=== PATIENT | female | born 1950 | race Caucasian/White ===

== ENCOUNTER 2022-07-01 11:53 | Inpatient (IN) ==
[2022-07-01] MEDS ORDERED: SODIUM CHLORIDE 0.9% 500 ML IV STA (12:12)
[2022-07-01] MEDS ORDERED: SODIUM CHLORIDE 0.9% 1000ML 500 ML IV ONE (13:24)
[2022-07-01] MEDS ORDERED: SODIUM CHLORIDE 0.9% 1000ML 1,000 ML IV SCH (13:30)
[2022-07-01 13:35] LABS: Basophils # (auto) 0.03 K/uL (0-0.2); Basophils % (auto) 0.4 %; Hematocrit (blood only) 43.9 % (37.0-47.0); Hemoglobin 14.8 g/dl (12.0-16.0); Immature Granulocytes # (auto) 0.02 K/uL (0.01-0.20); Immature Granulocytes % (auto) 0.3 %; Lymphocytes % (auto) 20.9 %; Mean Corpuscular Hemoglobin 29.9 pg (25.0-34.0); Mean Corpuscular Hgb Conc 33.7 g/dL (32.0-36.0); Mean Corpuscular Volume 88.7 fL (80.0-100.0); Mean Platelet Volume 10.2 fL (9.4-12.4); Monocytes # (auto) 0.95 K/uL (0.11-0.59); Monocytes % (auto) 12.4 %; Neutrophils # (auto) 5.07 K/uL (1.40-6.50); Platelet Count 234 K/uL (130-400); RDW Coefficient of Variation 12.8 % (11.5-14.5); RDW Standard Deviation 41.5 fL (36.4-46.3); Red Blood Count 4.95 M/uL (4.20-5.40); White Blood Count 7.67 K/ul (4.8-10.8)
--- NOTE | 2022-07-01 13:50 | Emergency Department Note ---
Impression & Plan Acute confusion ED Provider Note INFORMANT: Patient and ED PROVIDER(S): Yan Rice MD CHIEF COMPLAINT: Confusion PLAN: Disposition: Admitted Condition: Good Outpatient prescription management: none Referral: None MEDICAL DECISION MAKING: Patient presented complaining of confusion. She also noted urinary symptoms. She work-up obtained. Her head CT was unremarkable. Her CBC and chemistry panel was unremarkable. Total CK was within normal limits. Head CT imaging was unremarkable. The patient had dark urine complaints and urinalysis did reveal some concerns for infection. She had a CT scan of the abdomen pelvis performed which revealed no evidence of nephro or ureteral lithiasis. The patient did have some mild bladder wall thickening. She was treated with IV Rocephin and hydrated. Given the findings further management in the hospital was felt to be appropriate. Consultation was made with the [facility] hospitalist service. The case was discussed and diagnostics were reviewed. Patient was evaluated in the ER and admitted for further management After review of the information above and other included data, I feel the patient requires further treatment in the hospital. Triage Nursing notes reviewed and agree them. Vital Signs: reviewed and remarkable for no significant abnormalities Prior /Outside records reviewed: none Differential diagnosis: Infection, hypoglycemia, electrolyte abnormalities, overdose, toxicologic, cardiac sources, intracerebral event, neurologic, trauma, as well as other patho logies. Diagnostics, as interpreted by me: ECG: Twelve-lead ECG reveals sinus rhythm with first-degree AV block at [address] No ST elevation or depression. Cardiac Monitoring: Cardiac monitoring ordered by me: The patient was placed on continuous cardiac monitoring and observed. It revealed a normal sinus rhythm at 82 beats per minute without ectopy or evidence of dysrhythmia. Medical decision rules: none Imaging studies: CT scans as noted above. I refer you to the EMR for further details. HPI: The patient is a 71year old female who presents to the Emergency Room with complaints of confusion. This started about 5 days ago per the and is fluctuating. She was more confused this morning. She has been treated by Dr. Gardiner of [facility] gastroenterology. They contacted the office and patient was referred to the ER for work-up. She is being treated over the last several decades for colitis. The patient also notes the following associated symptoms, decreased urinary output, dark urine output weakness, occasional nausea vomiting. The patient has found no relieving factors. Patient reported 8 of 10 pain at triage but denies any pain at this time. Pt denies LOC, headache, fevers, chills, diaphoresis, visual changes, neck pain, chest pain, breathing difficulties, current abdominal pain, back pain, melena, hematochezia, numbness, lymphadenopathy, rash, or other complaints. PAST MEDICAL HISTORY: See Below, breast cancer, diabetes insipidus PAST SURGICAL HISTORY: See Below, SOCIAL HISTORY: See Below, HOME MEDICATIONS: See Below ALLERGIES: See Below VITALS: See Below PHYSICAL EXAMINATION: .GENERAL: Awake, alert, pxk-[id number]-snbjiypul, in no distress HENT: Normocephalic, atraumatic. Oropharynx with mildly dry mucous membranes. EYES: Normal conjunctiva. Sclera non-icteric. NECK: Inspection normal. Non-tender. Supple. No nuchal rigidity. FROM. No masses. RESPIRATORY: Clear to auscultation. No wheezes. No rales. Normal respiratory effort. CARDIAC: Normal rate. Normal rhythm. No murmurs. No rubs. Extremities warm and well perfused. Pulses equal. No JVD. GI: Soft, non-distended. Scant left lower quadrant tenderness to palpation. No rebound or guarding. No masses. RECTAL: Deferred. MUSCULOSKELETAL: Atraumatic. Chest examination reveals no tenderness. The back is symmetrical on inspection without obvious abnormality. There is no CVA tenderness to palpation. No joint edema. LOWER EXTREMITIES: Calves are equal size bilaterally and non-tender. No edema. No discoloration. NEURO: Normal sensorium. No sensory or motor deficits noted. SKIN: No rash or jaundice noted. 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 PT HAD BILATERAL MASTECTOMY 01/20/12 WITH LYMPH NODE INVOLVEMENT OF RIGHT AXILLA. LEFT AXILLA NEGATIVE FOR LYMPH NODE INVO LVEMENT TREATED WITH CHEMO AND RADIATION THERAPY History of CVA (cerebrovascular accident) 2003 Hypertension Lymphocytic hypophysitis Osteoarthritis Ulcerative colitis Surgical History H/O bilateral mastectomy History of bowel resection FOLLOWING A COLONOSCOPY History of lymph node dissection of both axillae Family History Other COPD (chronic obstructive pulmonary disease) Cancer Social History Smoking Status: Never smoker Do You Dip or Chew Tobacco: No; Hx Alcohol Use: No Hx Substance Use: No Preferred Language: [place]ese Communication Ability: Effective Fur Cleaner Required: No Beliefs That Will Affect Care: None Current Living Situation: Spouse and Family Other Information That Helps Us Care for You: No Feels Safe at Home: Yes Safety Concerns: Feels Safe At This Time Assistive Devices: None Allergies Allergies Allergy/AdvReac Type Severity Reaction Status Date / Time hydrocodone Allergy Severe RASH Verified 07/01/22 16:02 Penicillins Allergy Severe CAN'T Verified 07/01/22 16:02 REMEMBER ciprofloxacin AdvReac Intermediate nausea/vomi Verified 07/01/22 16:02 ting meloxicam [From Mobic] AdvReac Intermediate DIARRHEA/NA Verified 07/01/22 16:02 USEA/VOMITI NG Sulfa (Sulfonamide AdvReac Intermediate CAUSED Verified 07/01/22 16:02 Antibiotics) ELEVATION OF WBC'S PER PT PER DR BACA Home Meds Home Medications Medication Instructions Recorded Confirmed mesalamine 1.2 gram tablet,delayed 2.4 gm PO DAILY 03/01/19 07/01/22 release (Lialda) atorvastatin 10 mg tablet 10 mg PO DAILY 12/18/20 07/01/22 metoprolol succinate 25 mg 12.5 mg PO DAILY 01/09/22 07/01/22 tablet,extended release 24 hr pregabalin 50 mg capsule 50 mg PO QPM 04/17/22 07/01/22 aspirin 81 mg chewable tablet 81 mg PO DAILY 07/01/22 07/01/22 cholecalciferol (vitamin D3) 25 25 mcg PO DAILY 07/01/22 07/01/22 mcg (1,000 unit) capsule (Vitamin D3) desmopressin 0.1 mg tablet 0.05 mg PO BID 07/01/22 07/01/22 diphenhydramine 25 1 tab PO HS 07/01/22 07/01/22 mg-acetaminophen 500 mg tablet (Tylenol PM Extra Strength) duloxetine 20 mg capsule,delayed 20 mg PO DAILY 07/01/22 07/01/22 release ketoconazole 2 % topical cream 1 applic topical BID PRN RASH 07/01/22 07/01/22 UNDER BREAST NEEDED mesalamine 4 gram/60 mL enema 4 g VA HS 07/01/22 07/01/22 triamcinolone acetonide 0.1 % 1 applic topical BID PRN Skin 07/01/22 07/01/22 topical cream Irritation Results & Data (ED) Vital Signs Vital Signs - 24 hr 07/02/22 20:37 07/02/22 20:38 07/02/22 20:30 Temperature 36.6 C Temperature Source Oral Pulse Rate [Left Finger] 105 H Pulse Rate [Left Radial] Pulse Rhythm [Left Radial] Pulse Strength [Left Radial] Respiratory Rate 16 Respiratory Effort / Characteristics Non-Labored Spontaneous Non-Labored Spontaneous Respiratory Depth Normal Normal Respiratory Pattern Regular Regular Blood Pressure [Left Arm] 115/70 Blood Pressure Mean [Left Arm] 85 Blood Pressure Position [Left Arm] Pulse Oximetry 94 Oxygen Delivery Method Room Air Room Air EWS Level of Consciousness - Last Result Spontaneously Alert EWS Temperature - Last Result 36.6 EWS Respiratory Rate - Last Result 16 EWS Oxygen Saturation - Last Result 94 EWS Oxygen in Use - Last Result No EWS Lactate - Last Result 1.1 EWS Score 2 EWS Clinical Risk Low Risk 07/03/22 07:45 07/03/22 08:35 07/03/22 09:23 Temperature 36.5 C 36.5 C Temperature Source Oral Oral Pulse Rate [Left Finger] Pulse Rate [Left Radial] 86 84 Pulse Rhythm [Left Radial] Regular Regular Pulse Strength [Left Radial] Normal Strong Respiratory Rate 22 22 Respiratory Effort / Characteristics Non-Labored Non-Labored Respiratory Depth Normal Normal Respiratory Pattern Regular Regular Blood Pressure [Left Arm] 110/70 Blood Pressure Mean [Left Arm] 83 Blood Pressure Position [Left Arm] Semi-fowlers Pulse Oximetry 95 96 Oxygen Delivery Method Room Air Room Air EWS Level of Consciousness - Last Result Spontaneously Alert EWS Temperature - Last Result 36.5 EWS Respiratory Rate - Last Result 22 EWS Oxygen Saturation - Last Result 95 EWS Oxygen in Use - Last Result No EWS Lactate - Last Result 1.1 EWS Score 4 EWS Clinical Risk Moderate Risk Laboratory Data 07/01/22 13:00 07/01/22 13:00 Lab Results 07/01/22 07/01/22 07/01/22 Range/Units 13:00 13:00 13:00 WBC 7.67 (4.8-10.8) K/ul RBC 4.95 (4.20-5.40) M/uL Hgb 14.8 (12.0-16.0) g/dl Hct 43.9 (37.0-47.0) % MCV 88.7 (80.0-100.0) fL MCH 29.9 (25.0-34.0) pg MCHC 33.7 (32.0-36.0) g/dL RDW Std Deviation 41.5 (36.4-46.3) fL RDW Coeff of Moose 12.8 (11.5-14.5) % Plt Count 234 (130-400) K/uL MPV 10.2 (9.4-12.4) fL Immature Gran % (Auto) 0.3 % Neut % (Auto) 66.0 % Lymph % (Auto) 20.9 % Williams % (Auto) 12.4 % Eos % (Auto) 0.0 % Baso % (Auto) 0.4 % Neut # (Auto) 5.07 (1.40-6.50) K/uL Lymph # (Auto) 1.60 (1.2-3.4) K/uL Williams # (Auto) 0.95 H (0.11-0.59) K/uL Eos # (Auto) 0.00 (0-0.50) K/uL Baso # (Auto) 0.03 (0-0.2) K/uL Immature Gran # (Auto) 0.02 (0.01-0.20) K/uL Sodium 137 (136-145) mmol/L Potassium TNP Chloride 103 (98-107) mmol/L Carbon Dioxide 24 (21-32) mmol/L Anion Gap 10 (3-11) BUN 12 (6-23) mg/dl Creatinine 0.93 (0.6-1.2) mg/dl Est Cr Clr Drug Dosing 54.7 ml/min Est GFR ( Amer) 72.2 ml/min Est GFR (Non-Af Amer) 62.3 ml/min BUN/Creatinine Ratio 12.9 (10-20) Glucose 103 H (70-99(Fasting)) mg/dl Lactate (0.4-2.0) mmol/L Calcium 9.7 (8.5-10.1) mg/dl Magnesium 2.0 (1.7-2.4) mg/dl Total Bilirubin 1.2 H (0.2-1.0) mg/dl AST TNP ALT 17 (7-52) U/L Alkaline Phosphatase 89 (34-104) U/L Total Creatine Kinase 116 (26-192) U/L Troponin I High Sens 10.4 Cancelled (0-14) pg/ml Total Protein 7.7 (6.0-8.3) gm/dl Albumin 4.6 (3.4-5.0) gm/dl Globulin 3.1 (2.5-4.0) gm/dl Albumin/Globulin Ratio 1.5 (0.9-2) Urine Color Urine Appearance (Clear) Urine pH (4.5-7.5) POC Urine pH (4.5-7.5) Ur Specific [place] (1.000-1.030) Urine Protein (Negative) POC Urine Protein (Negative) Urine Glucose (UA) (Negative) POC Ur Glucose (UA) Urine Ketones (Negative) POC Urine Ketones (Negative) Urine Blood (Negative) POC Urine Blood (Negative) Urine Nitrite (Negative) POC Urine Nitrite (Negative) Urine Bilirubin (Negative) POC Urine Bilirubin (Negative) Urine Urobilinogen (Negative) POC Urine Urobilinogen (Normal) Ur Leukocyte Esterase (Negative) POC U Leukocyte Esteras (Negative) Urine RBC (0-4) /hpf Urine WBC (0-5) /hpf Ur Epithelial Cells (0-5) /lpf Urine Bacteria (Negative) Hyaline Casts (0-5) /lpf SARS-CoV-2 (PCR) (Negative) Influenza Type A (PCR) (Neg) Influenza Type B (PCR) (Neg) RSV (RT-PCR) (Neg) 07/01/22 07/01/22 07/01/22 Range/Units 13:00 14:17 14:35 WBC (4.8-10.8) K/ul RBC (4.20-5.40) M/uL Hgb (12.0-16.0) g/dl Hct (37.0-47.0) % MCV (80.0-100.0) fL MCH (25.0-34.0) pg MCHC (32.0-36.0) g/dL RDW Std Deviation (36.4-46.3) fL RDW Coeff of Moose (11.5-14.5) % Plt Count (130-400) K/uL MPV (9.4-12.4) fL Immature Gran % (Auto) % Neut % (Auto) % Lymph % (Auto) % Williams % (Auto) % Eos % (Auto) % Baso % (Auto) % Neut # (Auto) (1.40-6.50) K/uL Lymph # (Auto) (1.2-3.4) K/uL Williams # (Auto) (0.11-0.59) K/uL Eos # (Auto) (0-0.50) K/uL Baso # (Auto) (0-0.2) K/uL Immature Gran # (Auto) (0.01-0.20) K/uL Sodium (136-145) mmol/L Potassium Chloride (98-107) mmol/L Carbon Dioxide (21-32) mmol/L Anion Gap (3-11) BUN (6-23) mg/dl Creatinine (0.6-1.2) mg/dl Est Cr Clr Drug Dosing ml/min Est GFR ( Amer) ml/min Est GFR (Non-Af Amer) ml/min BUN/Creatinine Ratio (10-20) Glucose (70-99(Fasting)) mg/dl Lactate 1.1 (0.4-2.0) mmol/L Calcium (8.5-10.1) mg/dl Magnesium Cancelled (1.7-2.4) mg/dl Total Bilirubin (0.2-1.0) mg/dl AST ALT (7-52) U/L Alkaline Phosphatase (34-104) U/L Total Creatine Kinase Cancelled (26-192) U/L Troponin I High Sens (0-14) pg/ml Total Protein (6.0-8.3) gm/dl Albumin (3.4-5.0) gm/dl Globulin (2.5-4.0) gm/dl Albumin/Globulin Ratio (0.9-2) Urine Color Urine Appearance (Clear) Urine pH (4.5-7.5) POC Urine pH (4.5-7.5) Ur Specific [place] (1.000-1.030) Urine Protein (Negative) POC Urine Protein (Negative) Urine Glucose (UA) (Negative) POC Ur Glucose (UA) Urine Ketones (Negative) POC Urine Ketones (Negative) Urine Blood (Negative) POC Urine Blood (Negative) Urine Nitrite (Negative) POC Urine Nitrite (Negative) Urine Bilirubin (Negative) POC Urine Bilirubin (Negative) Urine Urobilinogen (Negative) POC Urine Urobilinogen (Normal) Ur Leukocyte Esterase (Negative) POC U Leukocyte Esteras (Negative) Urine RBC (0-4) /hpf Urine WBC (0-5) /hpf Ur Epithelial Cells (0-5) /lpf Urine Bacteria (Negative) Hyaline Casts (0-5) /lpf SARS-CoV-2 (PCR) NEGATIVE (Negative) Influenza Type A (PCR) Negative (Neg) Influenza Type B (PCR) Negative (Neg) RSV (RT-PCR) Negative (Neg) 07/01/22 07/01/22 07/02/22 Range/Units 14:50 14:59 00:48 WBC (4.8-10.8) K/ul RBC (4.20-5.40) M/uL Hgb (12.0-16.0) g/dl Hct (37.0-47.0) % MCV (80.0-100.0) fL MCH (25.0-34.0) pg MCHC (32.0-36.0) g/dL RDW Std Deviation (36.4-46.3) fL RDW Coeff of Moose (11.5-14.5) % Plt Count (130-400) K/uL MPV (9.4-12.4) fL Immature Gran % (Auto) % Neut % (Auto) % Lymph % (Auto) % Williams % (Auto) % Eos % (Auto) % Baso % (Auto) % Neut # (Auto) (1.40-6.50) K/uL Lymph # (Auto) (1.2-3.4) K/uL Williams # (Auto) (0.11-0.59) K/uL Eos # (Auto) (0-0.50) K/uL Baso # (Auto) (0-0.2) K/uL Immature Gran # (Auto) (0.01-0.20) K/uL Sodium (136-145) mmol/L Potassium 3.6 Chloride (98-107) mmol/L Carbon Dioxide (21-32) mmol/L Anion Gap (3-11) BUN (6-23) mg/dl Creatinine (0.6-1.2) mg/dl Est Cr Clr Drug Dosing ml/min Est GFR ( Amer) ml/min Est GFR (Non-Af Amer) ml/min BUN/Creatinine Ratio (10-20) Glucose (70-99(Fasting)) mg/dl Lactate (0.4-2.0) mmol/L Calcium (8.5-10.1) mg/dl Magnesium (1.7-2.4) mg/dl Total Bilirubin (0.2-1.0) mg/dl AST ALT (7-52) U/L Alkaline Phosphatase (34-104) U/L Total Creatine Kinase (26-192) U/L Troponin I High Sens (0-14) pg/ml Total Protein (6.0-8.3) gm/dl Albumin (3.4-5.0) gm/dl Globulin (2.5-4.0) gm/dl Albumin/Globulin Ratio (0.9-2) Urine Color Brown Urine Appearance Turbid A (Clear) Urine pH 5.5 (4.5-7.5) POC Urine pH 5 (4.5-7.5) Ur Specific [place] 1.025 (1.000-1.030) Urine Protein 2+ H (Negative) POC Urine Protein 1+ H (Negative) Urine Glucose (UA) Trace H (Negative) POC Ur Glucose (UA) Not Reportable Urine Ketones 3+ H (Negative) POC Urine Ketones 2+ (Moderate) H (Negative) Urine Blood Trace-lysed H (Negative) POC Urine Blood 250 H (Negative) Urine Nitrite Positive A (Negative) POC Urine Nitrite Negative (Negative) Urine Bilirubin 3+ H (Negative) POC Urine Bilirubin 3+ H (Negative) Urine Urobilinogen Negative (Negative) POC Urine Urobilinogen 1 H (Normal) Ur Leukocyte Esterase Negative (Negative) POC U Leukocyte Esteras Negative (Negative) Urine RBC 0-4 (0-4) /hpf Urine WBC 5-10 H (0-5) /hpf Ur Epithelial Cells 0-5 (0-5) /lpf Urine Bacteria 1+ H (Negative) Hyaline Casts >30 H (0-5) /lpf SARS-CoV-2 (PCR) (Negative) Influenza Type A (PCR) (Neg) Influenza Type B (PCR) (Neg) RSV (RT-PCR) (Neg) 07/02/22 07/02/22 07/03/22 Range/Units 07:28 07:28 08:04 WBC 7.09 (4.8-10.8) K/ul RBC 4.08 L (4.20-5.40) M/uL Hgb 12.0 (12.0-16.0) g/dl Hct 36.1 L (37.0-47.0) % MCV 88.5 (80.0-100.0) fL MCH 29.4 (25.0-34.0) pg MCHC 33.2 (32.0-36.0) g/dL RDW Std Deviation 42.7 (36.4-46.3) fL RDW Coeff of Moose 13.1 (11.5-14.5) % Plt Count 170 (130-400) K/uL MPV 9.8 (9.4-12.4) fL Immature Gran % (Auto) % Neut % (Auto) % Lymph % (Auto) % Williams % (Auto) % Eos % (Auto) % Baso % (Auto) % Neut # (Auto) (1.40-6.50) K/uL Lymph # (Auto) (1.2-3.4) K/uL Williams # (Auto) (0.11-0.59) K/uL Eos # (Auto) (0-0.50) K/uL Baso # (Auto) (0-0.2) K/uL Immature Gran # (Auto) (0.01-0.20) K/uL Sodium 138 139 (136-145) mmol/L Potassium 3.8 3.5 Chloride 107 109 H (98-107) mmol/L Carbon Dioxide 19 L 23 (21-32) mmol/L Anion Gap 12 H 7 (3-11) BUN 8 7 (6-23) mg/dl Creatinine 0.65 0.69 (0.6-1.2) mg/dl Est Cr Clr Drug Dosing 86.0 81.1 ml/min Est GFR ( Amer) 104.3 102.2 ml/min Est GFR (Non-Af Amer) 90.0 88.2 ml/min BUN/Creatinine Ratio 12.3 10.1 (10-20) Glucose 80 99 (70-99(Fasting)) mg/dl Lactate (0.4-2.0) mmol/L Calcium 8.8 8.5 (8.5-10.1) mg/dl Magnesium 1.7 (1.7-2.4) mg/dl Total Bilirubin (0.2-1.0) mg/dl AST ALT (7-52) U/L Alkaline Phosphatase (34-104) U/L Total Creatine Kinase 486 H (26-192) U/L Troponin I High Sens (0-14) pg/ml Total Protein (6.0-8.3) gm/dl Albumin (3.4-5.0) gm/dl Globulin (2.5-4.0) gm/dl Albumin/Globulin Ratio (0.9-2) Urine Color Urine Appearance (Clear) Urine pH (4.5-7.5) POC Urine pH (4.5-7.5) Ur Specific [place] (1.000-1.030) Urine Protein (Negative) POC Urine Protein (Negative) Urine Glucose (UA) (Negative) POC Ur Glucose (UA) Urine Ketones (Negative) POC Urine Ketones (Negative) Urine Blood (Negative) POC Urine Blood (Negative) Urine Nitrite (Negative) POC Urine Nitrite (Negative) Urine Bilirubin (Negative) POC Urine Bilirubin (Negative) Urine Urobilinogen (Negative) POC Urine Urobilinogen (Normal) Ur Leukocyte Esterase (Negative) POC U Leukocyte Esteras (Negative) Urine RBC (0-4) /hpf Urine WBC (0-5) /hpf Ur Epithelial Cells (0-5) /lpf Urine Bacteria (Negative) Hyaline Casts (0-5) /lpf SARS-CoV-2 (PCR) (Negative) Influenza Type A (PCR) (Neg) Influenza Type B (PCR) (Neg) RSV (RT-PCR) (Neg) 07/03/22 Range/Units 08:04 WBC 4.25 L (4.8-10.8) K/ul RBC 3.84 L (4.20-5.40) M/uL Hgb 11.4 L (12.0-16.0) g/dl Hct 34.0 L (37.0-47.0) % MCV 88.5 (80.0-100.0) fL MCH 29.7 (25.0-34.0) pg MCHC 33.5 (32.0-36.0) g/dL RDW Std Deviation 43.5 (36.4-46.3) fL RDW Coeff of Moose 13.3 (11.5-14.5) % Plt Count 142 (130-400) K/uL MPV 9.6 (9.4-12.4) fL Immature Gran % (Auto) % Neut % (Auto) % Lymph % (Auto) % Williams % (Auto) % Eos % (Auto) % Baso % (Auto) % Neut # (Auto) (1.40-6.50) K/uL Lymph # (Auto) (1.2-3.4) K/uL Williams # (Auto) (0.11-0.59) K/uL Eos # (Auto) (0-0.50) K/uL Baso # (Auto) (0-0.2) K/uL Immature Gran # (Auto) (0.01-0.20) K/uL Sodium (136-145) mmol/L Potassium Chloride (98-107) mmol/L Carbon Dioxide (21-32) mmol/L Anion Gap (3-11) BUN (6-23) mg/dl Creatinine (0.6-1.2) mg/dl Est Cr Clr Drug Dosing ml/min Est GFR ( Amer) ml/min Est GFR (Non-Af Amer) ml/min BUN/Creatinine Ratio (10-20) Glucose (70-99(Fasting)) mg/dl Lactate (0.4-2.0) mmol/L Calcium (8.5-10.1) mg/dl Magnesium (1.7-2.4) mg/dl Total Bilirubin (0.2-1.0) mg/dl AST ALT (7-52) U/L Alkaline Phosphatase (34-104) U/L Total Creatine Kinase (26-192) U/L Troponin I High Sens (0-14) pg/ml Total Protein (6.0-8.3) gm/dl Albumin (3.4-5.0) gm/dl Globulin (2.5-4.0) gm/dl Albumin/Globulin Ratio (0.9-2) Urine Color Urine Appearance (Clear) Urine pH (4.5-7.5) POC Urine pH (4.5-7.5) Ur Specific [place] (1.000-1.030) Urine Protein (Negative) POC Urine Protein (Negative) Urine Glucose (UA) (Negative) POC Ur Glucose (UA) Urine Ketones (Negative) POC Urine Ketones (Negative) Urine Blood (Negative) POC Urine Blood (Negative) Urine Nitrite (Negative) POC Urine Nitrite (Negative) Urine Bilirubin (Negative) POC Urine Bilirubin (Negative) Urine Urobilinogen (Negative) POC Urine Urobilinogen (Normal) Ur Leukocyte Esterase (Negative) POC U Leukocyte Esteras (Negative) Urine RBC (0-4) /hpf Urine WBC (0-5) /hpf Ur Epithelial Cells (0-5) /lpf Urine Bacteria (Negative) Hyaline Casts (0-5) /lpf SARS-CoV-2 (PCR) (Negative) Influenza Type A (PCR) (Neg) Influenza Type B (PCR) (Neg) RSV (RT-PCR) (Neg) Administered Medications Acetaminophen (Acetaminophen 325 Mg Tab) 650 mg PO Q4H PRN PRN Reason: pain/fever Stop: 07/31/22 17:48 Last Admin: 07/03/22 07:21 Dose: 650 mg Documented By: Admin: 07/02/22 20:15 Dose: 650 mg Documented By: Admin: 07/02/22 09:00 Dose: 650 mg Documented By: GM Aspirin (Aspirin 81 Mg Ectab) 81 mg PO DAILY [facility] Stop: 08/01/22 08:59 Last Admin: 07/03/22 08:33 Dose: 81 mg Documented By: Admin: 07/02/22 10:03 Dose: 81 mg Documented By: GM Atorvastatin Calcium (Atorvastatin 10 Mg Tab) 10 mg PO DAILY [facility] Stop: 08/01/22 08:59 Last Admin: 07/03/22 08:33 Dose: 10 mg Documented By: Admin: 07/02/22 10:04 Dose: 10 mg Documented By: GM Desmopressin Acetate (Desmopressin Acetate 0.1 Mg Tab) 0.05 mg PO BID [facility] Stop: 07/31/22 20:59 Last Admin: 07/03/22 08:32 Dose: 0.05 mg Documented By: Admin: 07/02/22 20:16 Dose: 0.05 mg Documented By: Admin: 07/02/22 10:01 Dose: 0.05 mg Documented By: Admin: 07/01/22 21:08 Dose: 0.05 mg Documented By: DEIUDONNE Docusate Sodium (Docusate Sodium 100 Mg Cap) 100 mg PO BID [facility] Stop: 08/01/22 09:29 Last Admin: 07/03/22 08:33 Dose: 100 mg Documented By: Admin: 07/02/22 20:16 Dose: 100 mg Documented By: Admin: 07/02/22 10:01 Dose: 100 mg Documented By: GM Duloxetine HCl (Duloxetine Hcl 20 Mg Cap) 20 mg PO DAILY [facility] Stop: 08/01/22 08:59 Last Admin: 07/03/22 08:33 Dose: 20 mg Documented By: Admin: 07/02/22 10:02 Dose: 20 mg Documented By: GM Enoxaparin Sodium (Enoxaparin Inj 40 Mg/0.4 Ml Syr) 40 mg SQ Q24H ANDREA Stop: 07/31/22 20:59 Last Admin: 07/02/22 20:16 Dose: 40 mg Documented By: Admin: 07/01/22 21:07 Dose: 40 mg Documented By: DIEUDONNE Promethazine HCl 12.5 mg/ (Sodium Chloride) 50.5 mls @ 202 mls/hr IV Q6H PRN PRN Reason: Nausea And Vomiting Stop: 08/01/22 00:41 Last Infusion: 07/02/22 09:15 Dose: 0 mls/hr Documented By: Admin: 07/02/22 08:54 Dose: 202 mls/hr Documented By: GM Sodium Chloride (Nss 1000ml) 1,000 mls @ 125 mls/hr IV .Q8H ANDREA Stop: 08/01/22 15:44 Last Admin: 07/03/22 16:19 Dose: 125 mls/hr Documented By: Infusion: 07/03/22 16:18 Dose: 0 mls/hr Documented By: KTMarguerite Infusion: 07/03/22 13:32 Dose: 125 mls/hr Documented By: Admin: 07/03/22 04:30 Dose: 80 mls/hr Documented By: Infusion: 07/03/22 04:29 Dose: 0 mls/hr Documented By: Admin: 07/02/22 15:58 Dose: 80 mls/hr Documented By: GM Mesalamine (Mesalamine 1 Ea) 2 each PO QAM ANDREA Stop: 08/02/22 08:59 Last Admin: 07/03/22 08:34 Dose: 2 each Documented By: GM Metoprolol Succinate (Metoprolol Succ 25mg Ext Rel Tab) 12.5 mg PO DAILY ANDREA Stop: 08/01/22 08:59 Last Admin: 07/03/22 08:33 Dose: 12.5 mg Documented By: Admin: 07/02/22 10:03 Dose: 12.5 mg Documented By: GM Pregabalin (Pregabalin 50 Mg Cap) 50 mg PO QPM ANDREA Stop: 07/31/22 20:59 Last Admin: 07/02/22 20:16 Dose: 50 mg Documented By: Admin: 07/01/22 19:42 Dose: Not Given Documented By: DIEUDONNE Discontinued Medications Sodium Chloride (Nss) 500 mls @ 999 mls/hr IV .Q31M STA Stop: 07/01/22 12:42 Last Infusion: 07/01/22 15:10 Dose: 0 mls/hr Documented By: Admin: 07/01/22 13:37 Dose: 999 mls/hr Documented By: BETO Sodium Chloride (Nss 1000ml) 500 mls @ 999 mls/hr IV .Q31M ONE Stop: 07/01/22 13:54 Last Admin: 07/01/22 14:37 Dose: Not Given Documented By: BETO Sodium Chloride (Nss 1000ml) 1,000 mls @ 125 mls/hr IV .Q8H ANDREA Stop: 07/01/22 21:29 Last Infusion: 07/02/22 00:31 Dose: 0 mls/hr Documented By: Admin: 07/01/22 14:50 Dose: 125 mls/hr Documented By: BETO Ceftriaxone Sodium (Rocephin) 2,000 mg in 70 mls @ 140 mls/hr IV NOW STA Stop: 07/01/22 15:51 Last Infusion: 07/01/22 16:34 Dose: 0 mls/hr Documented By: Admin: 07/01/22 15:58 Dose: 140 mls/hr Documented By: BETO Ceftriaxone Sodium 1,000 mg/ (Dextrose) 50 mls @ 100 mls/hr IV Q24H ANDREA; Protocol Stop: 07/06/22 15:59 Last Infusion: 07/02/22 16:30 Dose: 0 mls/hr Documented By: Admin: 07/02/22 15:56 Dose: 100 mls/hr Documented By: GM Sodium Chloride (Nss 1000ml) 1,000 mls @ 75 mls/hr IV .[id number] ONE Stop: 07/02/22 14:03 Last Infusion: 07/02/22 14:52 Dose: 0 mls/hr Documented By: Admin: 07/02/22 01:08 Dose: 75 mls/hr Documented By: DIEUDONNE Promethazine HCl 12.5 mg/ (Sodium Chloride) 50.5 mls @ 202 mls/hr IV NOW STA Stop: 07/02/22 01:01 Last Infusion: 07/02/22 01:45 Dose: 0 mls/hr Documented By: Admin: 07/02/22 01:07 Dose: 202 mls/hr Documented By: DIEUDONNE Lactulose (Lactulose Syrup 30 Gm/45 Ml Udp) 30 gm PO NOW STA Stop: 07/02/22 00:47 Last Admin: 07/02/22 06:27 Dose: Not Given Documented By: DIEUDONNE Miscellaneous (Mesalamine 1.2gm: Order Awaiting Action) 1 each N/A QS ANDREA Stop: 08/01/22 00:00 Last Admin: 07/02/22 17:40 Dose: Not Given Documented By: Admin: 07/02/22 09:58 Dose: Not Given Documented By: Admin: 07/02/22 00:36 Dose: Not Given Documented By: DIEUDONNE Ondansetron HCl (Ondansetron Inj 2 Mg/Ml 2 Ml Vial) 4 mg IV Q6H PRN PRN Reason: Nausea And Vomiting Stop: 07/31/22 18:31 Last Admin: 07/01/22 19:45 Dose: 4 mg Documented By: DIEUDONNE Polyethylene Glycol (Polyethylene (Miralax) 17 Gm Pack) 17 gm PO DAILY ANDREA Stop: 08/01/22 09:29 Last Admin: 02/01/23 08:32 Dose: 17 gm Documented By: Admin: 07/02/22 10:01 Dose: 17 gm Documented By: GM Potassium Chloride (Potassium Chloride Pwd 20 Meq Pack) 40 meq PO NOW STA Stop: 07/02/22 02:00 Last Admin: 07/02/22 06:23 Dose: 40 meq Documented By: DIEUDONNE Senna/Docusate Sodium (Docusate Sodium/Senna 50/8.6mg Tab) 1 tab PO QAM ANDREA Stop: 08/01/22 00:44 Last Admin: 07/02/22 06:23 Dose: 1 tab Documented By: DIEUDONNE Discharge Plan Visit Data Chief Complaint: Urinary Symptoms Stated Complaint: BROWN URINE, VOMITING, SHAKING, DISORIENTED ED Provider: Yan Rice Discharge Problem: Acute confusion Patient Disposition: Admitted As Inpatient Discharge Instructions Interventions: ED Discharge Assessment Last Done: 07/01/22 17:46
--- NOTE | 2022-07-01 14:30 | CT Scan Report ---
HEAD CT NONCONTRAST CT DOSE: 614.27 mGy.cm HISTORY: Altered mental status. TECHNIQUE: Multiaxial CT images of the head were performed without the use of intravenous contrast. A utomated exposure control was utilized for this study. A dose lowering technique was utilized adheri ng to the principles of ALARA. Comparison: Head CT 05/19/2016. Findings: The paranasal sinuses and mastoid air cells are clear. The calvarium and skull base are int act. The ventricles and sulci are within normal limits. There is no mass, hematoma, midline shift, or acute infarct. 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 Impression: No acute intracranial abnormality. ACT 112: Negative or not required by law. Electronically signed by: Quinn Cali M.D. 07/01/2022 2:28 PM
[2022-07-01 15:10] LABS: POC Urine Bilirubin 3+ (Negative); POC Urine Blood 250 (Negative); POC Urine Leukocytes Negative (Negative); POC Urine Nitrite Negative (Negative); POC Urine Protein 1+ (Negative); POC Urine Urobilinogen 1 (Normal); POC Urine pH 5 (4.5-7.5)
[2022-07-01 15:14] LABS: Alanine Aminotransferase 17 U/L (7-52); Albumin Globulin Ratio 1.5 (0.9-2); Albumin Level 4.6 gm/dl (3.4-5.0); Alkaline Phosphatase 89 U/L (34-104); Anion Gap 10 (3-11); BUN Creatinine Ratio 12.9 (10-20); Bilirubin,Total 1.2 mg/dl (0.2-1.0); Blood Urea Nitrogen 12 mg/dl (6-23); Calcium 9.7 mg/dl (8.5-10.1); Carbon Dioxide 24 mmol/L (21-32); Chloride 103 mmol/L (98-107); Creatine Kinase 116 U/L (26-192); Creatinine Clr Calc Pharmacy 54.7 ml/min; Est GFR (African American) 72.2 ml/min; Est GFR (Non-African American) 62.3 ml/min; Globulin 3.1 gm/dl (2.5-4.0); Glucose 103 mg/dl (70-99(Fasting)); Sodium 137 mmol/L (136-145); Total Protein 7.7 gm/dl (6.0-8.3)
[2022-07-01 15:14] LABS: Appearance Urine Turbid (Clear); Bilirubin Urine 3+ (Negative); Blood Urine Trace-lysed (Negative); Color Urine Brown; Glucose Urine UA Trace (Negative); Ketones Urine 3+ (Negative); Leukocyte Esterase Urine Negative (Negative); Nitrite Urine Positive (Negative); Protein Urine 2+ (Negative); Specific Gravity Urine 1.025 (1.000-1.030); Urobilinogen Urine Negative (Negative); pH Urine 5.5 (4.5-7.5)
[2022-07-01 15:17] LABS: Troponin I High Sensitivity 10.4 pg/ml (0-14)
[2022-07-01 15:19] LABS: Hyaline Casts Urine >30 /lpf (0-5)
[2022-07-01 15:20] LABS: Bacteria Urine 1+ (Negative); RBC Urine 0-4 /hpf (0-4)
[2022-07-01 15:21] LABS: Epithelial Cell Urine 0-5 /lpf (0-5)
[2022-07-01 15:22] LABS: Influenza A virus by PCR Negative (Neg); Influenza B virus by PCR Negative (Neg); RSV by PCR Negative (Neg); SARS CoV2 RNA(COVID-19) Ceph NEGATIVE (Negative)
[2022-07-01] MEDS ORDERED: cefTRIAXone SODIUM 2,000 MG/70 ML BAG IV STA (15:22)
--- NOTE | 2022-07-01 16:00 | CT Scan Report ---
ABDOMEN AND PELVIS CT WITHOUT CONTRAST CT DOSE: 304.04 mGy.cm HISTORY: Acute hematuria with altered mental status hematuria, confusion TECHNIQUE: Multiaxial CT images of the abdomen and pelvis were performed without contrast. A dose lo wering technique was utilized adhering to the principles of ALARA. COMPARISON STUDY: MR lumbar spine 09/21/2020, PET CT 12/12/2011 FINDINGS: Clear lung bases. No pneumatosis or pneumoperitoneum. The unenhanced spleen, pancreas, gall bladder, adrenal glands and liver are within normal limits. Unremarkable right kidney. Renal sinus cy sts are noted within the left kidney. No urolith or hydronephrosis. Decompressed urinary bladder with mild wall thickening. Small fat filled inguinal hernias. Unremarkable appearance of the uterus. Nons pecific trace free pelvic fluid. No adnexal mass lesions identified. Atherosclerosis of the aorta. No lymphadenopathy identified. Tiny hiatal hernia. No bowel obstruction or bowel wall thickening. There is mild colonic diverticulos is. Partial colonic resection with colocolonic anastomosis. Mild to moderate colonic fecal retention. Normal appendix. No mesenteric inflammation. Unremarkable soft tissues. No acute fracture. No suspic ious bone lesion. Mild levoscoliosis of the thoracolumbar junction. IMPRESSION: 1. No urolith or hydronephrosis. 2. No bowel obstruction or bowel wall thickening. 3. Colonic diverticulosis. 4. Small hiatal Hernia. 5. Additional findings as above. ACT 112: Negative or not required by law. The above report was generated using voice recognition software. It may contain grammatical, syntax o r spelling errors. Electronically signed by: Ubaldo Schultz M.D. 07/01/2022 3:58 PM
--- NOTE | 2022-07-01 16:23 | Electrocardiogram Report ---
Test Reason : Blood Pressure : / mmHG Vent. Rate : 065 BPM Atrial Rate : 065 BPM P-R Int : 254 ms QRS Dur : 088 ms QT Int : 368 ms P-R-T Axes : 061 024 080 degrees QTc Int : 382 ms Sinus rhythm with 1st degree A-V block Nonspecific T wave abnormality Abnormal ECG When compared with ECG of 20-APR-2012 20:55, AR interval has increased Nonspecific T wave abnormality, worse in Anterolateral leads Confirmed by Ayad Lozano ([id number]) on 07/01/2022 4:22:51 PM Referred By: REFERRED SELF Confirmed By:Ayad Lozano
--- NOTE | 2022-07-01 16:55 | History & Physical Report ---
Date of Service July 01, 2022 Assessment & Plan (1) Metabolic encephalopathy: (2) UTI (urinary tract infection): Plan: Admit to [facility] Patient presenting from home with reports of altered mental status and confusion. Patient has since returned back to her baseline mental status. In the ED, UA suggestive of UTI. CT ABD/pelvis unremarkable for acute findings Patient does not appear septic S/p IV ceftriaxone in the ED, continue with Follow urine culture (3) Diabetes insipidus, neurohypophyseal: Plan: Continue desmopressin (4) ACTH deficiency: Plan: Previously on hydrocortisone, this was discontinued 12/2021 (5) Ulcerative colitis: Plan: On mesalamine enemas recently for suspected flare, no further symptoms CT ABD/pelvis unremarkable Continue p.o. mesalamine (6) Hypertension: Plan: BP controlled, continue metoprolol DVT PROPHYLAXIS SQ Lovenox I spent a total of 60 minutes coordinating, documenting, and providing care for this patient excluding time spent in the performance of separately billed services. This included personally reviewing all current laboratories and imaging studies, medication reconciliation, outpatient chart review, and discussion with specialists. History of Present Illness Chief Complaint: Confusion Primary Care Provider: Rudy Thibodeaux DO 71-year-old female with PMH diabetes insipidus, ulcerative colitis, ACTH deficiency, breast cancer s/p bilateral mastectomy, and other problems listed below who presents to the ED for evaluation of confusion. Patient reports that about 1 week ago, she developed pink-tinged, mucousy stools. Patient felt as though she was having a UC flare. She called her GI doctor who prescribed her mesalamine enemas. Patient reports diarrhea has resolved. A few days ago, patient reports she noted her urine to be very dark in color. She denies dysuria and flank pain. No fevers or chills. This morning, shortly after waking up patient's noted the patient to be very disoriented. Patient also had a few episodes of vomiting. Denies hematemesis and coffee-ground emesis. Patient's then brought her to the ED for further evaluation. Patient has since returned to her baseline mental status. She denies chest pain, shortness of breath, palpitations. No lightheadedness, dizziness, diaphoresis, syncopal events. In the ED, UA is suggestive of UTI. Labs are unremarkable. CT ABD/pelvis unremarkable for acute findings. Patient was given IV ceftriaxone and IVF. Allergies Allergy/AdvReac Type Severity Reaction Status Date / Time hydrocodone Allergy Severe RASH Verified 07/01/22 16:02 Penicillins Allergy Severe CAN'T Verified 07/01/22 16:02 REMEMBER ciprofloxacin AdvReac Intermediate nausea/vomi Verified 07/01/22 16:02 ting meloxicam [From Mobic] AdvReac Intermediate DIARRHEA/NA Verified 07/01/22 16:02 USEA/VOMITI NG Sulfa (Sulfonamide AdvReac Intermediate CAUSED Verified 07/01/22 16:02 Antibiotics) ELEVATION OF WBC'S PER PT PER DR BACA Home Medications Medication Instructions Recorded Confirmed Type mesalamine 1.2 gram tablet,delayed 2.4 gm PO DAILY 03/01/19 07/01/22 History release (Lialda) atorvastatin 10 mg tablet 10 mg PO DAILY 12/18/20 07/01/22 History metoprolol succinate 25 mg 12.5 mg PO DAILY 01/09/22 07/01/22 History tablet,extended release 24 hr pregabalin 50 mg capsule 50 mg PO QPM 04/17/22 07/01/22 History aspirin 81 mg chewable tablet 81 mg PO DAILY 07/01/22 07/01/22 History cholecalciferol (vitamin D3) 25 25 mcg PO DAILY 07/01/22 07/01/22 History mcg (1,000 unit) capsule (Vitamin D3) desmopressin 0.1 mg tablet 0.05 mg PO BID 07/01/22 07/01/22 History diphenhydramine 25 1 tab PO HS 07/01/22 07/01/22 History mg-acetaminophen 500 mg tablet (Tylenol PM Extra Strength) duloxetine 20 mg capsule,delayed 20 mg PO DAILY 07/01/22 07/01/22 History release ketoconazole 2 % topical cream 1 applic topical BID PRN RASH 07/01/22 07/01/22 History UNDER BREAST NEEDED mesalamine 4 gram/60 mL enema 4 g OK HS 07/01/22 07/01/22 History triamcinolone acetonide 0.1 % 1 applic topical BID PRN Skin 07/01/22 07/01/22 History topical cream Irritation Past Med/Surg History Medical History ACTH deficiency Breast cancer Breast reconstruction deformity IMPLANTS REMOVED DUE TO INFECTION Chronic back pain PT FEELS THAT SHE HAS A MULTITUDE OF PROBLEMS IN THIS AREA, BUT DOES NOT SPECIFY SPECIFICS Diabetes insipidus, 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 PT HAD BILATERAL MASTECTOMY 01/20/12 WITH LYMPH NODE INVOLVEMENT OF RIGHT AXILLA. LEFT AXILLA NEGATIVE FOR LYMPH NODE INVOLVEMENT TREATED WITH CHEMO AND RADIATION THERAPY History of CVA (cerebrovascular accident) 2004 Hypertension Lymphocytic hypophysitis Osteoarthritis Ulcerative colitis Surgical History H/O bilateral mastectomy History of bowel resection FOLLOWING A COLONOSCOPY History of lymph node dissection of both axillae Family History Other COPD (chronic obstructive pulmonary disease) Cancer Social History Smoking Status: Never smoker Preferred Language: Guamanian Feels Safe at Home: Yes Review of Systems Review of Systems: ROS per HPI, all other systems reviewed and negative Physical Exam Constitutional: WD/WN, vitals as above Eyes: PERRL, conjunctivae normal, anicteric sclerae ENMT: external ear and nose normal, oropharynx normal Respiratory: normal respiratory effort, lungs clear to auscultation Cardiovascular: Rate/Rhythm: regular rate and regular rhythm Vessels: normal peripheral pulses Extremities: no edema Gastrointestinal (Abdomen): normal bowel sounds, soft, nontender, no hepatosplenomegaly Musculoskeletal: no cyanosis or clubbing, extremities motor strength 5/5 Skin: no rashes, warm and dry Neurologic: PERRL, EOMI, accommodation nl, no face palsy, no dysarthria Psychiatric: A+Ox3, euthymic affect Results & Data Results & Data ([facility]) Vital Signs (Past 12 Hours) Vital Signs Temp Pulse Pulse Resp BP BP Pulse Ox 07/01/22 16:32 80 18 121/77 95 07/01/22 13:41 77 18 120/60 96 07/01/22 12:07 36.5 C 106 H 16 101/67 97 O2 Del Method 07/01/22 16:32 Room Air 07/01/22 13:41 Room Air 07/01/22 12:07 Room Air Laboratory Results Short CBC 07/01/22 Range/Units 13:00 WBC 7.67 (4.8-10.8) K/ul Hgb 14.8 (12.0-16.0) g/dl Hct 43.9 (37.0-47.0) % Plt Count 234 (130-400) K/uL BMP 07/01/22 13:00 Sodium 137 Potassium TNP Chloride 103 Carbon Dioxide 24 BUN 12 Creatinine 0.93 Glucose 103 H Calcium 9.7 Cardiac Enzymes 07/01/22 07/01/22 Range/Units 13:00 13:00 Total Creatine Kinase 116 Cancelled (26-192) U/L Liver Function 07/01/22 Range/Units 13:00 Total Bilirubin 1.2 H (0.2-1.0) mg/dl AST TNP ALT 17 (7-52) U/L Alkaline Phosphatase 89 (34-104) U/L Albumin 4.6 (3.4-5.0) gm/dl Urine 07/01/22 Range/Units 14:50 Urine Color Brown Urine Appearance Turbid A (Clear) Urine pH 5.5 (4.5-7.5) Ur Specific [place] 1.025 (1.000-1.030) Urine Protein 2+ H (Negative) Urine Glucose (UA) Trace H (Negative) Diagnostic Findings Head CT 07/01/22 13:[address] DOSE: 614.27 mGy.cm HISTORY: Altered mental status. TECHNIQUE: Multiaxial CT images of the head were performed without the use of intravenous contrast. Automated exposure control was utilized for this study. A dose lowering technique was utilized adhering to the principles of ALARA. Comparison: Head CT 05/19/2016. Findings: The paranasal sinuses and mastoid air cells are clear. The calvarium and skull base are intact. The ventricles and sulci are within normal limits. There is no mass, hematoma, midline shift, or acute infarct. 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 Impression: No acute intracranial abnormality. ACT 112: Negative or not required by law. Electronically signed by: Quinn Cali M.D. 07/01/2022 2:28 PM Abdomen/Pelvis CT 07/01/22 15:[address] WITHOUT CONTRAST CT DOSE: 304.04 mGy.cm HISTORY: Acute hematuria with altered mental status hematuria, confusion TECHNIQUE: Multiaxial CT images of the abdomen and pelvis were performed without contrast. A dose lowering technique was utilized adhering to the principles of ALARA. COMPARISON STUDY: MR lumbar spine 09/21/2020, PET CT 12/12/2011 FINDINGS: Clear lung bases. No pneumatosis or pneumoperitoneum. The unenhanced spleen, pancreas, gallbladder, adrenal glands and liver are within normal limit s. Unremarkable right kidney. Renal sinus cysts are noted within the left kidney. No urolith or hydronephrosis. Decompressed urinary bladder with mild wall thickening. Small fat filled inguinal hernias. Unremarkable appearance of the uterus. Nonspecific trace free pelvic fluid. No adnexal mass lesions identified. Atherosclerosis of the aorta. No lymphadenopathy identified. Tiny hiatal hernia. No bowel obstruction or bowel wall thickening. There is mild colonic diverticulosis. Partial colonic resection with colocolonic anastomosis. Mild to moderate colonic fecal retention. Normal appendix. No mesenteric inflammation. Unremarkable soft tissues. No acute fracture. No suspicious bone lesion. Mild levoscoliosis of the thoracolumbar junction. IMPRESSION: 1. No urolith or hydronephrosis. 2. No bowel obstruction or bowel wall thickening. 3. Colonic diverticulosis. 4. Small hiatal Hernia. 5. Additional findings as above. ACT 112: Negative or not required by law. The above report was generated using voice recognition software. It may contain grammatical, syntax or spelling errors. Electronically signed by: Ubaldo Schultz M.D. 07/01/2022 3:58 PM Code Status & VTE Plan Code Status Patient is a full code as per my discussion with her. VTE Prophylaxis Plan VTE Prophylaxis will be ordered: Yes Supervising Physician Co-Signing Physician Notes Patient was seen and examined. Chart reviewed. Case discussed with CHERRY. Patient with chronic fatigue, recently diagnosed with HARITHA and placed on CPAP but she has not yet started using the machine due to not knowing how. Here with dark "black" urine past several days and today with confusion. Urinalysis abnormal and suggests UTI. Place on ceftriaxone, follow urine cultures. Careful with IVF with her history of DI. Would recommend OP follow up with her sleep study clinic to set up her CPAP machine and fitting of mask.
[2022-07-01] MEDS ORDERED: ONDANSETRON INJ 2 MG/ML 2 ML VIAL IV PRN (18:32)
[2022-07-01] MEDS: PREGABALIN 50 MG CAP PO SCH (19:42)
[2022-07-01] MEDS ORDERED: MELATONIN 3 MG TAB PO PRN (20:46)
[2022-07-01] MEDS: ENOXAPARIN INJ 40 MG/0.4 ML SYR SQ SCH (21:07)
[2022-07-01] MEDS: DESMOPRESSIN ACETATE 0.1 MG TAB PO SCH (21:08)
[2022-07-02] MEDS ORDERED: PROMETHAZINE HCL 12.5 MG in SODIUM CHLORIDE 0.9% 50 ML IV PRN (00:42)
[2022-07-02] MEDS ORDERED: SODIUM CHLORIDE 0.9% 1000ML 1,000 ML IV ONE (00:44)
[2022-07-02] MEDS ORDERED: DOCUSATE SODIUM/SENNA 50/8.6MG TAB PO SCH (00:45)
[2022-07-02] MEDS ORDERED: LACTULOSE SYRUP 30 GM/45 ML UDP PO STA (00:46)
[2022-07-02] MEDS ORDERED: PROMETHAZINE HCL 12.5 MG in SODIUM CHLORIDE 0.9% 50 ML IV STA (00:47)
[2022-07-02] MEDS ORDERED: POTASSIUM CHLORIDE PWD 20 MEQ PACK PO STA (01:59)
[2022-07-02 08:04] LABS: Hematocrit (blood only) 36.1 % (37.0-47.0); Mean Corpuscular Hemoglobin 29.4 pg (25.0-34.0); Mean Corpuscular Hgb Conc 33.2 g/dL (32.0-36.0); Mean Corpuscular Volume 88.5 fL (80.0-100.0); Mean Platelet Volume 9.8 fL (9.4-12.4); Platelet Count 170 K/uL (130-400); RDW Coefficient of Variation 13.1 % (11.5-14.5); RDW Standard Deviation 42.7 fL (36.4-46.3); Red Blood Count 4.08 M/uL (4.20-5.40); White Blood Count 7.09 K/ul (4.8-10.8)
[2022-07-02 08:24] LABS: BUN Creatinine Ratio 12.3 (10-20); Calcium 8.8 mg/dl (8.5-10.1); Est GFR (African American) 104.3 ml/min; Potassium 3.8 mmol/L (3.5-5.1)
[2022-07-02] MEDS: ACETAMINOPHEN 325 MG TAB PO PRN ×2 (09:00→20:15)
[2022-07-02] MEDS: DOCUSATE SODIUM 100 MG CAP PO SCH ×2 (10:01→20:16)
[2022-07-02] MEDS: POLYETHYLENE (MIRALAX) 17 GM PACK PO SCH (10:01)
[2022-07-02] MEDS: DESMOPRESSIN ACETATE 0.1 MG TAB PO SCH ×2 (10:01→20:16)
[2022-07-02] MEDS: DULoxetine HCL 20 MG CAP PO SCH (10:02)
[2022-07-02] MEDS: ASPIRIN 81 MG ECTAB PO SCH (10:03)
[2022-07-02] MEDS: METOPROLOL SUCC 25MG EXT REL TAB PO SCH (10:03)
[2022-07-02] MEDS: ATORVASTATIN 10 MG TAB PO SCH (10:04)
--- NOTE | 2022-07-02 15:23 | Hospitalist Progress Note ---
Date of Service July 02, 2022 Assessment & Plan (1) Metabolic encephalopathy: (2) UTI (urinary tract infection): Plan: Patient presented from home with reports of altered mental status and confusion. Patient has since returned back to her baseline mental status. In the ED, UA suggestive of UTI. CT ABD/pelvis unremarkable for acute findings No signs of sepsis On IV ceftriaxone (day 2) Urine culture with pinpoint growth, reincubating (3) Ulcerative colitis: Plan: On mesalamine enemas recently for suspected flare, no further symptoms Continue p.o. mesalamine CT ABD/pelvis shows mild to moderate colonic fecal retention, otherwise unremarkable. Start bowel regimen Patient with nausea and one episode of vomiting this AM -- possibly due to constipation. Patient requesting diet be advanced from clears. (4) Diabetes insipidus, neurohypophyseal: Plan: Continue desmopressin (5) ACTH deficiency: Plan: Previously on hydrocortisone, this was discontinued 12/2021 (6) Hypertension: Plan: BP controlled, continue metoprolol DVT PROPHYLAXIS SQ Lovenox Admission and Anticipated Discharge Date Admission Date: July 01, 2022 Supervising Physician Co-Signing Physician Notes Patient is seen and examined at bedside. States having bilateral leg pain. Denies any chest pain, shortness of breath, dizziness, abdominal pain, dysuria, hematuria. Reports intermittent nausea. No other complaints. On exam patient is moderately built and nourished, no acute distress, normocephalic/atraumatic, EOMI, normal breath sounds, clear to auscultation, S1-S2, normal, no pedal edema, abdomen soft, nontender, normal tone, alert, awake, alert, grossly no focal deficits. Patient is admitted for management of acute metabolic encephalopathy thought to be secondary to UTI. Confusion resolved. Continue empiric Rocephin. Follow-up cultures. Continue IV fluids. Recheck CK levels. Plan to hold statin if CK levels elevated tomorrow. Will consider Doppler study of lower extremity if pain unimproved. I personally reviewed the record. Patient is interviewed and examined at bedside. Patient's care is coordinated with Daniela Bhakta [employer]. Please refer to the documentation above for details of patient's presentation and for discussion of other issues. Subjective Follow-up for metabolic encephalopathy, UTI. Patient seen and examined. Mental status not back to baseline. Patient reports intermittent nausea, 1 episode of vomiting. Denies abdominal pain. No BM. BL leg aches. No chest pain or shortness of breath. Review of Systems Review of Systems: ROS per HPI, all other systems reviewed and negative Physical Exam Constitutional: WD/WN, vitals as above Respiratory: normal respiratory effort, lungs clear to auscultation Cardiovascular: Rate/Rhythm: regular rate and regular rhythm Vessels: normal peripheral pulses Extremities: no edema Gastrointestinal (Abdomen): Percussion/Palpation: abdomen soft; abdomen nontender Skin: no rashes, warm and dry Neurologic: no focal motor deficits Psychiatric: A+Ox3, euthymic affect Results & Data Results & Data ([facility]) Vital Signs (Past 12 Hours) Vital Signs Temp Pulse Resp BP Pulse Ox O2 Del Method 07/02/22 07:42 36.7 C 100 H 16 130/69 93 Room Air Laboratory Results Short CBC 07/02/22 Range/Units 07:28 WBC 7.09 (4.8-10.8) K/ul Hgb 12.0 (12.0-16.0) g/dl Hct 36.1 L (37.0-47.0) % Plt Count 170 (130-400) K/uL BMP 07/02/22 07/02/22 00:48 07:28 Sodium 138 Potassium 3.6 3.8 Chloride 107 Carbon Dioxide 19 L BUN 8 Creatinine 0.65 Glucose 80 Calcium 8.8
[2022-07-02] MEDS: SODIUM CHLORIDE 0.9% 1000ML 1,000 ML IV SCH (15:58)
[2022-07-02] MEDS ORDERED: cefTRIAXone SODIUM 1,000 MG in DEXTROSE 5% AD-VAN 50 ML IV SCH (16:00)
[2022-07-02] MEDS: PREGABALIN 50 MG CAP PO SCH (20:16)
[2022-07-02] MEDS: ENOXAPARIN INJ 40 MG/0.4 ML SYR SQ SCH (20:16)
[2022-07-03] MEDS: SODIUM CHLORIDE 0.9% 1000ML 1,000 ML IV SCH ×2 (04:30→16:19)
[2022-07-03] MEDS: ACETAMINOPHEN 325 MG TAB PO PRN ×2 (07:21→20:37)
[2022-07-03 08:27] LABS: Hemoglobin 11.4 g/dl (12.0-16.0); Mean Corpuscular Hemoglobin 29.7 pg (25.0-34.0); Mean Corpuscular Hgb Conc 33.5 g/dL (32.0-36.0); Mean Corpuscular Volume 88.5 fL (80.0-100.0); Mean Platelet Volume 9.6 fL (9.4-12.4); Platelet Count 142 K/uL (130-400); RDW Coefficient of Variation 13.3 % (11.5-14.5); RDW Standard Deviation 43.5 fL (36.4-46.3); Red Blood Count 3.84 M/uL (4.20-5.40); White Blood Count 4.25 K/ul (4.8-10.8)
[2022-07-03] MEDS: DESMOPRESSIN ACETATE 0.1 MG TAB PO SCH ×2 (08:32→20:33)
[2022-07-03] MEDS: POLYETHYLENE (MIRALAX) 17 GM PACK PO SCH ×2 (08:32→21:43)
[2022-07-03] MEDS: METOPROLOL SUCC 25MG EXT REL TAB PO SCH (08:33)
[2022-07-03] MEDS: ASPIRIN 81 MG ECTAB PO SCH (08:33)
[2022-07-03] MEDS: DULoxetine HCL 20 MG CAP PO SCH (08:33)
[2022-07-03] MEDS: DOCUSATE SODIUM 100 MG CAP PO SCH ×2 (08:33→21:43)
[2022-07-03] MEDS: ATORVASTATIN 10 MG TAB PO SCH (08:33)
[2022-07-03] MEDS: MESALAMINE 1 EA PO SCH (08:34)
[2022-07-03 09:21] LABS: BUN Creatinine Ratio 10.1 (10-20); Calcium 8.5 mg/dl (8.5-10.1); Creatinine Clr Calc Pharmacy 81.1 ml/min; Est GFR (African American) 102.2 ml/min; Est GFR (Non-African American) 88.2 ml/min; Magnesium 1.7 mg/dl (1.7-2.4); Potassium 3.5 mmol/L (3.5-5.1)
--- NOTE | 2022-07-03 14:25 | Hospitalist Progress Note ---
Date of Service July 03, 2022 Assessment & Plan (1) Metabolic encephalopathy: Plan: Patient presented from home with reports of altered mental status and confusion. Initially felt to be due to UTI however urine culture shows low counts of skin scott. Received IV ceftriaxone, will discontinue and monitor off antibiotics. CT ABD/pelvis unremarkable for acute findings Etiology of AMS not entirely clear however patient seems to have returned to baseline. PT/OT DYSPHAGIA Patient reporting difficulty swallowing this morning --now improved Speech eval Patient declining GI consult (2) Elevated CK: Plan: CK 116 --> 486 today. Reported bilateral leg aching yesterday, improved today. May have mild rhabdomyolysis -- ? triggered from dehydration from ?? viral violet roenteritis in combination with statin use Increase IVF to 125/hr. hold statin. Follow CK (3) ACTH deficiency: Plan: Previously on hydrocortisone, this was discontinued 12/2021 Will check AM cortisol level, consider resuming hydrocortisone/discussing with endocrine (patient well known to Dr. Weller) (4) Ulcerative colitis: Plan: On mesalamine enemas recently for suspected flare, no further symptoms. ?? Viral gastroenteritis. No further diarrhea, now constipated. Bowel regimen started. Nausea improving. Continue p.o. mesalamine CT ABD/pelvis shows mild to moderate colonic fecal retention, otherwise unremarkable. (5) Diabetes insipidus, neurohypophyseal: Plan: Continue desmopressin (6) Hypertension: Plan: BP controlled, continue metoprolol DVT PROPHYLAXIS SQ Lovenox Admission and Anticipated Discharge Date Admission Date: July 03, 2022 Supervising Physician Co-Signing Physician Notes Patient is seen and examined at bedside. Bilateral leg pain better today. Reports dysphagia. Denies any chest pain, shortness of breath, dizziness, abdominal pain, dysuria, hematuria. No other complaints. On exam patient is moderately built and nourished, no acute distress, normocephalic/atraumatic, EOMI, normal breath sounds, clear to auscultation, S1-S2, normal, no pedal edema, abdomen soft, nontender, normal tone, alert, awake, alert, grossly no focal deficits. Patient is admitted for management of acute metabolic encephalopathy thought to be secondary to UTI. Confusion resolved. Urine culture negative. Rocephin discontinued. Mild rhabdomyolysis. Hold statin. Continue IV fluids. Will consider Doppler study of lower extremity if pain unimproved. Speech eval for dysphagia. Agree with checking a.m. cortisol. I personally reviewed the record. Patient is interviewed and examined at bedside. Patient's care is coordinated with Daniela Bhakta [employer]. Please refer to the documentation above for details of patient's presentation and for discussion of other issues. Subjective Follow-up for metabolic encephalopathy. Patient seen and examined. Mental status back to baseline. Reports various complaints -- difficulty swallowing this AM, now improved. BL thigh pain from yesterday improving. Intermittent nausea continues however no vomiting. Constipated however had small BM yesterday. No chest pain or shortness of breath. Review of Systems Review of Systems: ROS per HPI, all other systems reviewed and negative Physical Exam Constitutional: WD/WN, vitals as above Respiratory: normal respiratory effort, lungs clear to auscultation Cardiovascular: Rate/Rhythm: regular rate and regular rhythm Vessels: normal peripheral pulses Extremities: no edema Gastrointestinal (Abdomen): Percussion/Palpation: abdomen soft; abdomen nontender Skin: no rashes, warm and dry Neurologic: no focal motor deficits Psychiatric: A+Ox3, euthymic affect Results & Data Results & Data ([facility]) Vital Signs (Past 12 Hours) Vital Signs Temp Pulse Resp BP Pulse Ox O2 Del Method 07/03/22 11:56 36.8 C 76 22 95 Room Air 07/03/22 09:23 36.5 C 84 22 96 Room Air 07/03/22 07:45 36.5 C 86 22 110/70 95 Room Air Laboratory Results Short CBC 07/03/22 Range/Units 08:04 WBC 4.25 L (4.8-10.8) K/ul Hgb 11.4 L (12.0-16.0) g/dl Hct 34.0 L (37.0-47.0) % Plt Count 142 (130-400) K/uL BMP 07/03/22 08:04 Sodium 139 Potassium 3.5 Chloride 109 H Carbon Dioxide 23 BUN 7 Creatinine 0.69 Glucose 99 Calcium 8.5 Cardiac Enzymes 07/03/22 Range/Units 08:04 Total Creatine Kinase 486 H (26-192) U/L
[2022-07-03] MEDS: PREGABALIN 50 MG CAP PO SCH (20:34)
[2022-07-03] MEDS: ENOXAPARIN INJ 40 MG/0.4 ML SYR SQ SCH (21:43)
[2022-07-04] MEDS: SODIUM CHLORIDE 0.9% 1000ML 1,000 ML IV SCH ×4 (00:01→23:59)
[2022-07-04] MEDS: ACETAMINOPHEN 325 MG TAB PO PRN ×2 (07:46→16:16)
[2022-07-04] MEDS: ASPIRIN 81 MG ECTAB PO SCH (07:48)
[2022-07-04] MEDS: METOPROLOL SUCC 25MG EXT REL TAB PO SCH (07:48)
[2022-07-04] MEDS: DULoxetine HCL 20 MG CAP PO SCH (07:48)
[2022-07-04] MEDS: DOCUSATE SODIUM 100 MG CAP PO SCH ×2 (07:50→20:36)
[2022-07-04] MEDS: MESALAMINE 1 EA PO SCH (07:50)
[2022-07-04] MEDS: POLYETHYLENE (MIRALAX) 17 GM PACK PO SCH ×2 (07:51→20:36)
[2022-07-04] MEDS: DESMOPRESSIN ACETATE 0.1 MG TAB PO SCH ×2 (09:20→20:36)
[2022-07-04 11:04] LABS: BUN Creatinine Ratio 4.9 (10-20); Calcium 9.2 mg/dl (8.5-10.1); Creatinine Clr Calc Pharmacy 91.7 ml/min; Est GFR (African American) 106.5 ml/min; Est GFR (Non-African American) 91.9 ml/min; Potassium 3.2 mmol/L (3.5-5.1)
[2022-07-04] MEDS ORDERED: POTASSIUM CHLORIDE CRTAB 20 MEQ TABCR PO STA (11:16)
--- NOTE | 2022-07-04 16:14 | Hospitalist Progress Note ---
Date of Service July 04, 2022 Assessment & Plan (1) Metabolic encephalopathy: Plan: Patient presented from home with reports of altered mental status and confusion. Initially felt to be due to UTI however urine culture shows low counts of skin scott. Received IV ceftriaxone, will discontinue and monitor off antibiotics. CT ABD/pelvis unremarkable for acute findings Etiology of AMS not entirely clear however patient seems to have returned to baseline. PT/OT DYSPHAGIA Patient reporting difficulty swallowing this morning --now improved Speech eval -recommending regular bite-size with extra sauce, aspiration and reflux precautions, follow-up with GI for medication management and/or further testing as appropriate for signs and symptoms of esophageal dysfunction (2) Elevated CK: Plan: CK 116 --> 486 --> 1,245 now meeting criteria for rhabdomyolysis Reported bilateral leg aching initially that has been improving Rhabdo triggered from dehydration from ?? viral gastroenteritis in combination with statin use Increase IVF to 150 ml/hr Renal function at baseline Hold statin Follow CK (3) ACTH deficiency: Plan: Previously on hydrocortisone, this was discontinued 12/2021 AM cortisol level WNL (4) Ulcerative colitis: Plan: On mesalamine enemas recently for suspected flare, no further symptoms. ?? Viral gastroenteritis. No further diarrhea, now constipated. Bowel regimen started. Nausea improving. Continue p.o. mesalamine CT ABD/pelvis shows mild to moderate colonic fecal retention, otherwise unremarkable (5) Diabetes insipidus, neurohypophyseal: Plan: Continue desmopressin (6) Hypertension: Plan: BP controlled, continue metoprolol Hypokalemia Replaced DVT PROPHYLAXIS SQ Lovenox A total of 35 minutes were spent with greater than 50% of that time face to face with the patient, personally reviewing all current laboratories, imaging studies, past medication reconciliation, outpatient chart review, and discussion with specialists to collaborate care for the patient with attending and utilization of translation services. Please see attending documentation for corrections and/or additions. Admission and Anticipated Discharge Date Admission Date: July 03, 2022 Supervising Physician Co-Signing Physician Notes Patient is seen and examined at bedside. Feels tired. Leg pain much improved. Denies any chest pain, shortness of breath, dizziness, abdominal pain, dysuria, hematuria. No other complaints. On exam patient is moderately built and nourished, no acute distress, normocephalic/atraumatic, EOMI, normal breath sounds, clear to auscultation, S1-S2, normal, no pedal edema, abdomen soft, nontender, normal tone, alert, awake, alert, grossly no focal deficits. Patient is admitted for management of acute metabolic encephalopathy thought to be secondary to UTI. Confusion resolved. Urine culture negative. Rocephin discontinued. Mild rhabdomyolysis. Hold statin. Continue IV fluids. Cortisol normal. Speech eval for dysphagia. Monitor CK levels. I personally reviewed the record. Patient is interviewed and examined at bedside. Patient's care is coordinated with Carey Payton PA-C. Please refer to the documentation above for details of patient's presentation and for discussion of other issues. Subjective Seen in follow-up for metabolic encephalopathy. Mental status back to baseline. Had difficulty sleeping overnight and is feeling fatigued. Muscle aches improving. Also having difficulty swallowing awaiting speech eval. No other new symptoms. No fever, chills, lightheadedness. No chest pain or shortness of breath. No vomiting or abdominal pain. Urinating without issue. Small bowel movement yesterday. Review of Systems Review of Systems: ROS per HPI, all other systems reviewed and negative Physical Exam Physical Exam: Gen: WD/WN, NAD, sitting in bed, A&Ox3 HEENT: Normocephalic, atraumatic, conjunctivae moist, sclerae anicteric, mucous membranes moist Lung: Clear to Auscultation bilaterally, no wheezes/rales/rhonchi Heart: Regular rate, regular rhythm, no murmurs, rubs, or gallops Abdomen: Soft, NT, ND +BS x 4 Extremities: no edema Skin: Warm, no rash Results & Data Results & Data ([facility]) Vital Signs (Past 12 Hours) Vital Signs Temp Pulse Resp BP Pulse Ox O2 Del Method 07/04/22 15:56 36.3 C L 91 H 20 138/77 95 Room Air 07/04/22 07:55 36.7 C 97 H 20 131/76 93 Room Air Laboratory Results [facility] 07/04/22 08:22 Sodium 144 Potassium 3.2 L Chloride 108 H Carbon Dioxide 29 BUN 3 L Creatinine 0.61 Glucose 135 H Calcium 9.2 Cardiac Enzymes 07/04/22 Range/Units 08:22 Total Creatine Kinase 1245 H (26-192) U/L Diagnostic Findings Head CT 07/01/22 13:[address] DOSE: 614.27 mGy.cm HISTORY: Altered mental status. TECHNIQUE: Multiaxial CT images of the head were performed without the use of intravenous contrast. Automated exposure control was utilized for this study. A dose lowering technique was utilized adhering to the principles of ALARA. Comparison: Head CT 05/19/2016. Findings: The paranasal sinuses and mastoid air cells are clear. The calvarium and skull base are intact. The ventricles and sulci are within normal limits. There is no mass, hematoma, midline shift, or acute infarct. 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 Impression: No acute intracranial abnormality. ACT 112: Negative or not required by law. Electronically signed by: Quinn Cali M.D. 07/01/2022 2:28 PM Abdomen/Pelvis CT 07/01/22 15:[address] WITHOUT CONTRAST CT DOSE: 304.04 mGy.cm HISTORY: Acute hematuria with altered mental status hematuria, confusion TECHNIQUE: Multiaxial CT images of the abdomen and pelvis were performed without contrast. A dose lowering technique was utilized adhering to the principles of ALARA. COMPARISON STUDY: MR lumbar spine 09/21/2020, PET CT 12/12/2011 FINDINGS: Clear lung bases. No pneumatosis or pneumoperitoneum. The unenhanced spleen, pancreas, gallbladder, adrenal glands and liver are within normal limits. Unremarkable right kidney. Renal sinus cysts are noted within the left kidney. No urolith or hydronephrosis. Decompressed urinary bladder with mild wall thickening. Small fat filled inguinal hernias. Unremarkable appearance of the uterus. Nonspecific trace free pelvic fluid. No adnexal mass lesions identified. Atherosclerosis of the aorta. No lymphadenopathy identified. Tiny hiatal hernia. No bowel obstruction or bowel wall thickening. There is mild colonic diverticulosis. Partial colonic resection with colocolonic anastomosis. Mild to moderate colonic fecal retention. Normal appendix. No mesenteric inflammation. Unremarkable soft tissues. No acute fracture. No suspicious bone lesion. Mild levoscoliosis of the thoracolumbar junction. IMPRESSION: 1. No urolith or hydronephrosis. 2. No bowel obstruction or bowel wall thickening. 3. Colonic diverticulosis. 4. Small hiatal Hernia. 5. Additional findings as above. ACT 112: Negative or not required by law. The above report was generated using voice recognition software. It may contain grammatical, syntax or spelling errors. Electronically signed by: Ubaldo Schultz M.D. 07/01/2022 3:58 PM
[2022-07-04] MEDS: ENOXAPARIN INJ 40 MG/0.4 ML SYR SQ SCH (20:36)
[2022-07-04] MEDS: PREGABALIN 50 MG CAP PO SCH (20:36)
[2022-07-04] MEDS ORDERED: Nursing to Pharmacy Communication SCH (21:00)
[2022-07-05] MEDS: SODIUM CHLORIDE 0.9% 1000ML 1,000 ML IV SCH ×3 (06:29→20:39)
[2022-07-05 07:32] LABS: Hematocrit (blood only) 39.1 % (37.0-47.0); Hemoglobin 13.3 g/dl (12.0-16.0); Mean Corpuscular Hemoglobin 29.6 pg (25.0-34.0); Mean Corpuscular Volume 87.1 fL (80.0-100.0); Mean Platelet Volume 10.4 fL (9.4-12.4); Platelet Count 166 K/uL (130-400); RDW Coefficient of Variation 13.1 % (11.5-14.5); RDW Standard Deviation 40.9 fL (36.4-46.3); Red Blood Count 4.49 M/uL (4.20-5.40); White Blood Count 5.09 K/ul (4.8-10.8)
[2022-07-05 08:57] LABS: BUN Creatinine Ratio 7.2 (10-20); Calcium 9.7 mg/dl (8.5-10.1); Creatinine Clr Calc Pharmacy 81.1 ml/min; Est GFR (African American) 102.2 ml/min; Est GFR (Non-African American) 88.2 ml/min; Magnesium 1.8 mg/dl (1.7-2.4); Potassium 3.7 mmol/L (3.5-5.1)
[2022-07-05] MEDS: DOCUSATE SODIUM 100 MG CAP PO SCH ×2 (09:08→20:41)
[2022-07-05] MEDS: METOPROLOL SUCC 25MG EXT REL TAB PO SCH (09:08)
[2022-07-05] MEDS: DULoxetine HCL 20 MG CAP PO SCH (09:09)
[2022-07-05] MEDS: DESMOPRESSIN ACETATE 0.1 MG TAB PO SCH ×2 (09:10→20:44)
[2022-07-05] MEDS: ASPIRIN 81 MG ECTAB PO SCH (09:10)
[2022-07-05] MEDS: MESALAMINE 1 EA PO SCH (09:11)
[2022-07-05] MEDS: POLYETHYLENE (MIRALAX) 17 GM PACK PO SCH ×2 (09:12→20:42)
[2022-07-05] MEDS ORDERED: DESMOPRESSIN ACETATE 0.1 MG TAB PO ONE (13:30)
--- NOTE | 2022-07-05 17:53 | Hospitalist Progress Note ---
Date of Service July 05, 2022 Assessment & Plan (1) Metabolic encephalopathy: Plan: Patient presented from home with reports of altered mental status and confusion. Initially felt to be due to UTI however urine culture shows low counts of skin scott. Received IV ceftriaxone, will discontinue and monitor off antibiotics. --CT ABD/pelvis unremarkable for acute findings Mental status back to baseline Continue PT OT DYSPHAGIA Patient reporting difficulty swallowing this morning --now improved Speech eval -recommending regular bite-size with extra sauce, aspiration and reflux precautions, follow-up with GI for medication management and/or further testing as appropriate for signs and symptoms of esophageal dysfunction Continue current diet (2) Elevated CK: Plan: Acute rhabdomyolysis No H/O Trauma Hold statin Monitor CK levels Continue IV fluids Improving (3) ACTH deficiency: Plan: Previously on hydrocortisone, this was discontinued 12/2021 AM cortisol level WNL (4) Ulcerative colitis: Plan: On mesalamine enemas recently for suspected flare, no further symptoms. ?? Viral gastroenteritis. No further diarrhea, now constipated. Bowel regimen started. Nausea improving. Continue p.o. mesalamine CT ABD/pelvis shows mild to moderate colonic fecal retention, otherwise unremarkable (5) Diabetes insipidus, neurohypophyseal: Plan: Continue desmopressin (6) Hypertension: Plan: BP controlled, continue metoprolol Hypokalemia Replace and monitor DVT PROPHYLAXIS SQ Lovenox Admission and Anticipated Discharge Date Admission Date: July 03, 2022 Subjective Patient is seen and examined at bedside Leg pain almost resolved Weakness improving States having excessive urination secondary to IV fluids No new complaints Denies any chest pain, shortness of breath, dizziness, nausea, abdominal pain Tolerating diet Review of Systems Review of Systems: All systems reviewed & are unremarkable except as noted in Subjective Physical Exam Physical Exam: Physical Exam: Vitals signs as noted above General Appearance:Moderately built and nourished, no apparent distress Head: normocephalic, Atraumatic Eyes: normal inspection, EOMI Neck: supple, Trachea midline Respiratory/Chest: Normal breath sounds, CTA, No accessory muscle use Cardiovascular: S1, S2, No murmur Abdomen/GI:Soft, Non tender, Bowel sounds present Extremities/Musculoskeletal:normal inspection, no edema Neurologic/Psych:AAOX3, grossly no focal neurological deficits Skin: normal color, warm Results & Data Results & Data ([facility]) Vital Signs (Past 12 Hours) Vital Signs Temp Pulse Resp BP Pulse Ox O2 Del Method 07/05/22 15:03 36.6 C 83 16 161/79 H 96 Room Air 07/05/22 07:37 36.6 C 87 16 155/86 H 94 Room Air Laboratory Results Short CBC 07/05/22 Range/Units 06:50 WBC 5.09 (4.8-10.8) K/ul Hgb 13.3 (12.0-16.0) g/dl Hct 39.1 (37.0-47.0) % Plt Count 166 (130-400) K/uL BMP 07/05/22 06:50 Sodium 145 Potassium 3.7 Chloride 111 H Carbon Dioxide 26 BUN 5 L Creatinine 0.69 Glucose 115 H Calcium 9.7 Cardiac Enzymes 07/05/22 Range/Units 06:50 Total Creatine Kinase 996 H (26-192) U/L
[2022-07-05] MEDS: PREGABALIN 50 MG CAP PO SCH (20:43)
[2022-07-05] MEDS: ENOXAPARIN INJ 40 MG/0.4 ML SYR SQ SCH (20:44)
[2022-07-06] MEDS: SODIUM CHLORIDE 0.9% 1000ML 1,000 ML IV SCH ×2 (03:08→08:55)
[2022-07-06] MEDS: ASPIRIN 81 MG ECTAB PO SCH (08:52)
[2022-07-06] MEDS: METOPROLOL SUCC 25MG EXT REL TAB PO SCH (08:53)
[2022-07-06] MEDS: DULoxetine HCL 20 MG CAP PO SCH (08:53)
[2022-07-06] MEDS: ACETAMINOPHEN 325 MG TAB PO PRN (08:53)
[2022-07-06] MEDS: DOCUSATE SODIUM 100 MG CAP PO SCH (08:53)
[2022-07-06] MEDS: MESALAMINE 1 EA PO SCH (08:54)
[2022-07-06] MEDS: POLYETHYLENE (MIRALAX) 17 GM PACK PO SCH (08:54)
[2022-07-06 08:58] LABS: BUN Creatinine Ratio 11.8 (10-20); Calcium 9.3 mg/dl (8.5-10.1); Creatinine Clr Calc Pharmacy 82.2 ml/min; Est GFR (African American) 102.7 ml/min; Est GFR (Non-African American) 88.6 ml/min; Potassium 3.6 mmol/L (3.5-5.1)
[2022-07-06] MEDS ORDERED: DESMOPRESSIN ACETATE 0.1 MG TAB PO SCH (09:00)
--- NOTE | 2022-07-06 12:34 | Discharge Summary ---
Date of Service July 06, 2022 Admission HPI Per Admitting Provider 71-year-old female with PMH diabetes insipidus, ulcerative colitis, ACTH deficiency, breast cancer s/p bilateral mastectomy, and other problems listed below who presents to the ED for evaluation of confusion. Patient reports that about 1 week ago, she developed pink-tinged, mucousy stools. Patient felt as though she was having a UC flare. She called her GI doctor who prescribed her mesalamine enemas. Patient reports diarrhea has resolved. A few days ago, patient reports she noted her urine to be very dark in color. She denies dysuria and flank pain. No fevers or chills. This morning, shortly after waki ng up patient's noted the patient to be very disoriented. Patient also had a few episodes of vomiting. Denies hematemesis and coffee-ground emesis. Patient's then brought her to the ED for further evaluation. Patient has since returned to her baseline mental status. She denies chest pain, shortness of breath, palpitations. No lightheadedness, dizziness, diaphoresis, syncopal events. In the ED, UA is suggestive of UTI. Labs are unremarkable. CT ABD/pelvis unremarkable for acute findings. Patient was given IV ceftriaxone and IVF. Admission Exam Per Admitting Provider Constitutional: WD/WN, vitals as above Eyes: PERRL, conjunctivae normal, anicteric sclerae ENMT: external ear and nose normal, oropharynx normal Respiratory: normal respiratory effort, lungs clear to auscultation Cardiovascular: Rate/Rhythm: regular rate and regular rhythm Vessels: normal peripheral pulses Extremities: no edema Gastrointestinal (Abdomen): normal bowel sounds, soft, nontender, no hepatosplenomegaly Musculoskeletal: no cyanosis or clubbing, extremities motor strength 5/5 Skin: no rashes, warm and dry Neurologic: PERRL, EOMI, accommodation nl, no face palsy, no dysarthria Psychiatric:L A+Ox3, euthymic affect Principal Diagnosis Metabolic encephalopathy Dysphagia Rhabdomyolysis Discharge Exam GENERAL: Alert and oriented x3. NAD, on RA. HEENT: No pallor, no icterus. Pupils equal, round and reactive to light. Oral mucosa moist. NECK: No JVD, no neck masses. HEART: S1 and S2 heard. Regular rate and rhythm. No murmur, no gallop. RESPIRATORY SYSTEM: Normal AP diameter. No accessory muscle use. No wheezing, no crackles. ABDOMEN: Soft, bowel sounds present, nontender, no distention. CENTRAL NERVOUS SYSTEM: No facial droop. Speech is clear. Obeys simple commands. Moves extremities. EXTREMITIES: No edema, no erythema seen. Discharge Data Allergies Allergy/AdvReac Type Severity Reaction Status Date / Time hydrocodone Allergy Severe RASH Verified 07/01/22 16:02 Penicillins Allergy Severe CAN'T Verified 07/01/22 16:02 REMEMBER ciprofloxacin AdvReac Intermediate nausea/vomi Verified 07/01/22 16:02 ting meloxicam [From Mobic] AdvReac Intermediate DIARRHEA/NA Verified 07/01/22 16:02 USEA/VOMITI NG Sulfa (Sulfonamide AdvReac Intermediate CAUSED Verified 07/01/22 16:02 Antibiotics) ELEVATION OF WBC'S PER PT PER DR BACA Ordered Studies 07/01/22 13:24 CT head/brain wo con Stat 07/01/22 15:22 CT Abd and Pelvis [CT abd pelvis wo con] Stat Hospital Course (1) Metabolic encephalopathy: Patient presented from home with reports of altered mental status and confusion. Initially felt to be due to UTI however urine culture shows low counts of skin scott. Received IV ceftriaxone, was discontinued and monitored off antibiotic. --CT ABD/pelvis unremarkable for acute findings Mental status back to baseline Continue PT OT DYSPHAGIA Patient reporting difficulty swallowing this morning --now improved Speech eval -recommending regular bite-size with extra sauce, aspiration and reflux precautions, follow-up with GI for medication management and/or further testing as appropriate for signs and symptoms of esophageal dysfunction Continue current diet (2) Elevated CK: Acute rhabdomyolysis No H/O Trauma Hold statin Monitor CK levels, down trending, pt to maintain 84 ounces of fluid intake daily for a week, then back to baseline fluid intake. Pt to f/w w/ pcp office in a week time and get labs including cpk level measured. (3) ACTH deficiency: Previously on hydrocortisone, this was discontinued 12/2021 AM cortisol level WNL (4) Ulcerative colitis: On mesalamine enemas recently for suspected flare, no further symptoms. ?? Viral gastroenteritis. No further diarrhea, now constipated. Bowel regimen started. Nausea improving. Continue p.o. mesalamine CT ABD/pelvis shows mild to moderate colonic fecal retention, otherwise unremarkable (5) Diabetes insipidus, neurohypophyseal: Continue desmopressin (6) Hypertension: BP controlled, continue metoprolol Hypokalemia Replace and monitor DVT PROPHYLAXIS SQ Lovenox Plan Patient being discharged home with following instruction at the point of discharge: Follow-up with your primary care physician within a week time and likely you will need labs CBC/CMP/CPK level/magnesium/phosphorus. For your difficulty swallowing, if it persists, recommend following up with GI for further evaluation as an outpatient. For your elevated muscle injury enzymes, the enzyme named CPK was trending down while in hospital, maintain adequate hydration of around 85 ounces of fluid a day for at least 1 week and then can continue with your regular fluid intake lev el. Also advise to hold your statin until you are seen by your PCP and your CPK level is remeasured and you have been evaluated further by your PCP office. Take your medications as prescribed. Home Health Attestation I certify that this patient is under my care and that I, or a physicians diver assistant working with me, had a face to-face encounter that meets the home health [id number] encounter requirements with this patient. The encounter with the patient was in whole, or in part, for the following medical condition, which is the primary reason for home health care (list medical condition): I certify that, based on my findings, the following services are medically necessary home health services: My clinical findings support the need for the above services because: Further, I certify that my clinical findings support that this patient is homebound (i.e. absences from home require considerable and taxing effort and are for medical reasons or bahai services or infrequently or of short duration when for other reasons) because: Certification for Home Health Services: Based on the above findings, I certify that this patient is confined to the home and needs intermittent correction care, physical therapy and/or speech therapy or continues to need occupational therapy. The patient is under my care, and I have initiated the establishment of the plan of care. This patient will be followed by a physician who will periodically review the plan of care. Total Time Total Time Spent Total Time Spent (In Minutes): 45 Discharge Plan Discharge Items Patient Disposition: Home - Self-Care Reason For Visit: UTI Discharge Diagnosis: Metabolic encephalopathy Dysphagia Rhabdomyolysis Activity: Resume your previous activity Non-emergency contact: Primary Care Provider Call non-emergency contact if: you have any medication questions, your symptoms worsen and your temperature is above 101 Follow-up/Referrals: Rudy hTibodeaux DO [Primary Care Provider] - Diet: Regular Diet Texture: Dental soft (bite-sized) Addtl Attending Provider Instructions: Follow-up with your primary care physician within a week time and likely you will need labs CBC/CMP/CPK level/magnesium/phosphorus. For your difficulty swallowing, if it persists, recommend following up with GI for further evaluation as an outpatient. For your elevated muscle injury enzymes, the enzyme named CPK was trending down while in hospital, maintain adequate hydration of around 85 ounces of fluid a day for at least 1 week and then can continue with your regular fluid intake level. Also advise to hold your statin until you are seen by your PCP and your CPK level is remeasured and you have been evaluated further by your PCP office. Take your medications as prescribed. Pending Studies at Discharge: No Stand-Alone Forms: My [facility], Smoking Cessation Medications and DC Order Prescriptions: Continued mesalamine [Lialda] 1.2 gram tablet,delayed release (DR/EC) 2.4 gm PO DAILY pregabalin 50 mg capsule 50 mg PO QPM Rx Instructions: PER PT "ONLY AT PM", PER [facility] "BID". metoprolol succinate 25 mg tablet extended release 24 hr 12.5 mg PO DAILY mesalamine 4 gram/60 mL enema 4 g [place] HS Rx Instructions: STARTED 06/26/22 FOR 5 DAYS. triamcinolone acetonide 0.1 % cream 1 applic TOPICAL BID PRN (Reason: Skin Irritation) aspirin 81 mg Tablet,Chewable 81 mg PO DAILY diphenhydramine-acetaminophen [Tylenol PM Extra Strength] 25-500 mg Tablet 1 tab PO HS ketoconazole 2 % Cream 1 applic TOPICAL BID PRN (Reason: RASH UNDER BREAST NEEDED) cholecalciferol (vitamin D3) [Vitamin D3] 25 mcg (1,000 unit) Capsule 25 mcg PO DAILY duloxetine 20 mg capsule,delayed release(DR/EC) 20 mg PO DAILY desmopressin 0.1 mg tablet 0.05 mg PO BID Rx Instructions: 0.05mg qam, 0.10mg qpm Discontinued atorvastatin 10 mg tablet 10 mg PO DAILY Discharge Orders: Discharge Order (Routine); Ordered 07/06/22 Ordered By: Rohan Martinez Admission Data Admit Date/Time: 07/03/22 10:45 Attending Provider: Rohan Martinez Admit Provider: Janak Cody Primary Care Provider: Rudy Thibodeaux Other Providers: Carey Payton
== END 2022-07-06 13:52 | disposition home or self-care (01) | DRG 689 ==
LOC: ED 11:53 → 3N 11:53 → SUATTDRO 15:45 → 3N 17:46 → SUATTDRO 07-03 10:45

== ENCOUNTER 2023-01-15 16:41 | Observation (INO) ==
[2023-01-15] MEDS ORDERED: MAGNESIUM SULFATE / D5W 1 GM/100 ML BAG IV STA (16:50)
[2023-01-15] MEDS ORDERED: SODIUM CHLORIDE 0.9% 500 ML IV STA (16:50)
--- NOTE | 2023-01-15 16:59 | Emergency Department Note ---
Impression & Plan Atrial fibrillation with rapid ventricular response, Atrial fibrillation, new onset ED Provider Note NAME: PATRIA LEON AGE: 72 SEX: F : 1950 ARRIVES VIA: Ambulance INFORMANT: Patient, ED PROVIDER(S): Ayad Loo DO CHIEF COMPLAINT: Palpitations HPI: The patient is a 72-year-old female who presented to the emergency department from her endocrine doctor's office for an evaluation of palpitations. Apparently the patient had an irregular heartbeat at the office. She was found to be in atrial fibrillation in the office and was sent to the emergency department. Patient states that she has been having fatigue as well as gene ralized weakness. She is also noticed dyspnea on exertion. She denies having any chest pain or lower extremity swelling. She has a history of pituitary problems as well as thyroid problems. This is why she sees endocrine. The patient denies having any recent fevers. The patient denies having any alcohol use. ROS: See above HPI for pertinent positives & negatives. A total of 10 systems reviewed and were otherwise negative. PAST MEDICAL HISTORY: See Below PAST SURGICAL HISTORY: See Below FAMILY HISTORY: See Below SOCIAL HISTORY: See Below HOME MEDICATIONS: See Below ALLERGIES: See Below VITALS: See Below PHYSICAL EXAMINATION: GENERAL: Patient is awake alert in no acute distress patient is resting comfortably and showing no signs of anxiety EYES: The conjunctivae are clear. The pupils are round and reactive. EARS, NOSE, MOUTH AND THROAT: The nose is without any evidence of any deformity. Mucous membranes are moist. Tongue is midline. NECK: The neck is nontender and supple. RESPIRATORY: Normal respiratory effort is noted there is no evidence of wheezing rhonchi or rales CARDIOVASCULAR: Irregular and tachycardic heart sounds were noted to ausculta tion. There is no definite murmur GASTROINTESTINAL: The abdomen is soft. Abdomen is nontender. MUSCULOSKELETAL/EXTREMITIES: There is no evidence of gross deformity full range of motion is noted in the hips and shoulders. SKIN: There is no obvious evidence of any rash. There are no petechiae, pallor or cyanosis noted. NEUROLOGIC: Patient is awake alert and oriented x3 MEDICAL DECISION MAKING: The patient is a 72-year-old female who does have a history of pituitary issues as well as thyroid dysfunction who presented to the emergency department for an evaluation of palpitations. The patient may have been in atrial fibrillation for quite some time. She was sent to the emergency department after she was seen by her rn labor and delivery and had irregular heart rate to auscultation. EKG showed atrial fibrillation the patient was sent to the emergency department. She was treated with IV fluids and IV magnesium. Pulse rate did improve. She was not hypoxic. Blood pressure stable. I discussed the patient's laboratory and radiographic studies with her. I also discussed her condition with the on- call [facility] hospitalist. Given the patient's age and past medical history she may be a candidate for anticoagulation. She may require further inpatient work-up such as echocardiogram. She was agreeable with the plan. Triage Nursing notes reviewed. Prior medical records reviewed Vital Signs: reviewed and remarkable for tachycardia. Differential diagnosis: Premature contractions, electrolyte abnormality, cardiac dysrhythmia, thyroid dysfunction, pulmonary embolism, infection, gastrointestinal, as well as other pathologies. ER treatment provided: See below Diagnostics interpreted by me: ECG: EKG was obtained in the emergency department. My interpretation is atrial fibrillation at 104 bpm. No PVCs were noted. No acute ST segment abnormalities were noted. This was compared to a tracing from June 21, 2022. Atrial fibrillation has replaced normal sinus rhythm compared to the previous tracing. Cardiac Monitoring: An order was placed for continuous cardiac monitoring. The monitor shows a rate of 98 bpm with atrial fibrillation. Laboratory studies: As stated above and show below. Imaging studies: See below. Radiographic imaging was reviewed by myself Consultation(s): Dr. Pérez who is on-call for the [facility] Hospitalist group was notified about the patient. Past Med/Surg History Medical History Breast reconstruction deformity IMPLANTS REMOVED DUE TO INFECTION Chronic back pain PT FEELS THAT SHE HAS A MULTITUDE OF PROBLEMS IN THIS AREA, BUT DOES NOT SPECIFY SPECIFICS GERD (gastroesophageal reflux disease) History of breast cancer HER2-positive STAGE 3 AT TIME OF DIAGNOSIS. PT HAD BILATERAL MASTECTOMY 01/20/12 WITH LYMPH NODE INVOLVEMENT OF RIGHT AXILLA. LEFT AXILLA NEGATIVE FOR LYMPH NODE INVOLVEMENT TREATED WITH CHEMO AND RADIATION THERAPY. History of CVA (cerebrovascular accident) 2003 HLD (hyperlipidemia) Osteoarthritis Overweight (BMI 25.0-29.9) UTI (urinary tract infection) Surgical History H/O bilateral mastectomy History of bowel resection FOLLOWING A COLONOSCOPY History of lymph node dissection of both axillae Family History Other COPD (chronic obstructive pulmonary disease) Cancer Social History Smoking Status: Unknown if ever smoked Do You Dip or Chew Tobacco: No; Hx Alcohol Use: No Hx Substance Use: No Preferred Language: Luxembourgish Communication Ability: Effective Rejoiner Required: No Beliefs That Will Affect Care: None Current Living Situation: Spouse and Family Feels Safe at Home: Yes Assistive Devices: None Allergies Allergies Allergy/AdvReac Type Severity Reaction Status Date / Time hydrocodone Allergy Severe RASH Verified 01/15/23 15:13 Penicillins Allergy Severe CAN'T Verified 01/15/23 15:13 REMEMBER ciprofloxacin AdvReac Intermediate nausea/vomi Verified 01/15/23 15:13 ting meloxicam [From Mobic] AdvReac Intermediate DIARRHEA/NA Verified 01/15/23 15:13 USEA/VOMITI NG Sulfa (Sulfonamide AdvReac Intermediate CAUSED Verified 01/15/23 15:13 Antibiotics) ELEVATION OF WBC'S PER PT PER DR BACA Home Meds Home Medications Medication Instructions Recorded Confirmed mesalamine 1.2 gram tablet,delayed 2.4 gm PO DAILY 03/01/19 01/15/23 release (Lialda) cholecalciferol (vitamin D3) 25 25 mcg PO DAILY 07/01/22 01/15/23 mcg (1,000 unit) capsule (Vitamin D3) ketoconazole 2 % topical cream 1 applic topical BID PRN RASH 07/01/22 01/15/23 UNDER BREAST NEEDED triamcinolone acetonide 0.1 % 1 applic topical BID PRN Skin 07/01/22 01/15/23 topical cream Irritation omeprazole 20 mg capsule,delayed 20 mg PO DAILY 01/07/23 01/15/23 release aspirin 81 mg tablet,delayed 81 mg PO DAILY 01/15/23 01/15/23 release levothyroxine 50 mcg tablet 50 mcg PO .HOLD 01/15/23 01/15/23 mesalamine 4 gram/60 mL enema 4 g ID HS PRN .. 01/15/23 01/15/23 Previous Rx's Medication Instructions Recorded desmopressin 0.1 mg tablet 0.05 mg PO .COMPLEX #135 tabs 11/29/22 duloxetine 20 mg capsule,delayed 20 mg PO DAILY #30 caps 12/09/22 release Results & Data (ED) Vital Signs Vital Signs - 24 hr 01/15/23 17:14 01/15/23 16:33 01/15/23 17:02 Temperature 36.5 C Temperature Source Oral Pulse Rate 99 H 110 H 87 Pulse Rate from SpO2 Sensor 101 H Pulse Rhythm Irregular Respiratory Rate 14 14 Blood Pressure 131/94 Blood Pressure Mean 106 Pulse Oximetry 94 92 Sepsis Recent Fever Within 48 Hours No Sepsis New/Unexplained Change in Mental Status No Sepsis Action Taken by Nursing No Action Required 01/15/23 17:30 01/15/23 18:00 01/15/23 21:09 Temperature Temperature Source Pulse Rate 110 H 88 110 H Pulse Rate from SpO2 Sensor Pulse Rhythm Respiratory Rate 19 15 Blood Pressure 138/79 Blood Pressure Mean 98 Pulse Oximetry 94 96 Sepsis Recent Fever Within 48 Hours Sepsis New/Unexplained Change in Mental Status Sepsis Action Taken by Residential Medications Current Medication List: was personally reviewed by me Laboratory Data Attestation: I reviewed the patient's lab results. 01/15/23 17:07 01/15/23 17:07 Lab Results 01/15/23 01/15/23 01/15/23 Range/Units 17:07 17:07 17:07 WBC 4.83 (4.8-10.8) K/ul RBC 4.76 (4.20-5.40) M/uL Hgb 13.6 (12.0-16.0) g/dl Hct 39.6 (37.0-47.0) % MCV 83.2 (80.0-100.0) fL MCH 28.6 (25.0-34.0) pg MCHC 34.3 (32.0-36.0) g/dL RDW Std Deviation 38.4 (36.4-46.3) fL RDW Coeff of Moose 12.5 (11.5-14.5) % Plt Count 209 (130-400) K/uL MPV 9.6 (9.4-12.4) fL Immature Gran % (Auto) 0.2 % Neut % (Auto) 43.9 % Lymph % (Auto) 38.3 % [place] % (Auto) 17.4 % Eos % (Auto) 0.0 % Baso % (Auto) 0.2 % Neut # (Auto) 2.12 (1.40-6.50) K/uL Lymph # (Auto) 1.85 (1.2-3.4) K/uL [place] # (Auto) 0.84 H (0.11-0.59) K/uL Eos # (Auto) 0.00 (0-0.50) K/uL Baso # (Auto) 0.01 (0-0.2) K/uL Immature Gran # (Auto) 0.01 (0.01-0.20) K/uL PT 11.1 (9.0-12.0) Seconds INR 1.0 (0.9-1.1) APTT 25.3 (21.0-31.0) Seconds PTT Ratio 0.9 Sodium 135 L (136-145) mmol/L Potassium 3.7 (3.5-5.1) mmol/L Chloride 103 (98-107) mmol/L Carbon Dioxide 24 (21-32) mmol/L Anion Gap 8 (3-11) BUN 15 (6-23) mg/dl Creatinine 0.79 (0.6-1.2) mg/dl Est Cr Clr Drug Dosing 69.8 ml/min Est GFR ( Amer) 87.3 ml/min Est GFR (Non-Af Amer) 75.3 ml/min BUN/Creatinine Ratio 19.0 (10-20) Glucose 91 (70-99(Fasting)) mg/dl Calcium 9.2 (8.6-10.3) mg/dl Magnesium 2.1 (1.7-2.4) mg/dl Total Bilirubin 0.5 (0.2-1.0) mg/dl AST 23 (13-39) U/L ALT 10 (7-52) U/L Alkaline Phosphatase 102 (34-104) U/L Troponin I High Sens 9.4 (0-14) pg/ml Total Protein 6.8 (6.0-8.3) gm/dl Albumin 4.0 (3.4-5.0) gm/dl Globulin 2.8 (2.5-4.0) gm/dl Albumin/Globulin Ratio 1.4 (0.9-2) TSH (0.300-4.500) uIu/ml Free T4 (0.61-1.60) ng/dl Free T3 (2.3-4.2) pg/ml 01/15/23 01/15/23 Range/Units 17:07 17:07 WBC (4.8-10.8) K/ul RBC (4.20-5.40) M/uL Hgb (12.0-16.0) g/dl Hct (37.0-47.0) % MCV (80.0-100.0) fL MCH (25.0-34.0) pg MCHC (32.0-36.0) g/dL RDW Std Deviation (36.4-46.3) fL RDW Coeff of Moose (11.5-14.5) % Plt Count (130-400) K/uL MPV (9.4-12.4) fL Immature Gran % (Auto) % Neut % (Auto) % Lymph % (Auto) % [place] % (Auto) % Eos % (Auto) % Baso % (Auto) % Neut # (Auto) (1.40-6.50) K/uL Lymph # (Auto) (1.2-3.4) K/uL [place] # (Auto) (0.11-0.59) K/uL Eos # (Auto) (0-0.50) K/uL Baso # (Auto) (0-0.2) K/uL Immature Gran # (Auto) (0.01-0.20) K/uL PT (9.0-12.0) Seconds INR (0.9-1.1) APTT (21.0-31.0) Seconds PTT Ratio Sodium (136-145) mmol/L Potassium (3.5-5.1) mmol/L Chloride (98-107) mmol/L Carbon Dioxide (21-32) mmol/L Anion Gap (3-11) BUN (6-23) mg/dl Creatinine (0.6-1.2) mg/dl Est Cr Clr Drug Dosing ml/min Est GFR ( Amer) ml/min Est GFR (Non-Af Amer) ml/min BUN/Creatinine Ratio (10-20) Glucose (70-99(Fasting)) mg/dl Calcium (8.6-10.3) mg/dl Magnesium (1.7-2.4) mg/dl Total Bilirubin (0.2-1.0) mg/dl AST (13-39) U/L ALT (7-52) U/L Alkaline Phosphatase (34-104) U/L Troponin I High Sens (0-14) pg/ml Total Protein (6.0-8.3) gm/dl Albumin (3.4-5.0) gm/dl Globulin (2.5-4.0) gm/dl Albumin/Globulin Ratio (0.9-2) TSH < 0.010 L (0.300-4.500) uIu/ml Free T4 1.28 (0.61-1.60) ng/dl Free T3 3.81 (2.3-4.2) pg/ml Administered Medications Discontinued Medications Sodium Chloride (Nss) 500 mls @ 999 mls/hr IV .Q31M STA Stop: 01/15/23 17:20 Last Infusion: 01/15/23 19:10 Dose: 0 mls/hr Documented By: Admin: 01/15/23 17:16 Dose: 999 mls/hr Documented By: SANTOSH Magnesium Sulfate/Dextrose (Magnesium Sulfate / D5w) 1 gm in 100 mls @ 100 mls/hr IV NOW STA Stop: 01/15/23 17:49 Last Infusion: 01/15/23 19:10 Dose: 0 mls/hr Documented By: Admin: 01/15/23 17:15 Dose: 100 mls/hr Documented By: SANTOSH Imaging Data Attestation: I personally reviewed and interpreted this imaging study as follows: My Impression: 1 view chest x-ray was obtained in the emergency department. My interpretation is no free air or definite infiltrate, final report below. Radiologist's Impression: Chest X-Ray 01/15/23 16:50 XR chest 1V portable CLINICAL HISTORY: Dysrhythmia TECHNIQUE: Single frontal radiograph of the chest was obtained. Comparison: None available at the time of this dictation. FINDINGS: No lines and tubes are seen. The cardiomediastinal silhouette is normal. The lungs are clear. No evidence of pleural effusion or pneumothorax. IMPRESSION: No acute chest disease. ACT 112: Negative or not required by law. Electronically signed by: Parviz Mitchell M.D. 01/15/2023 5:23 PM Discharge Plan Visit Data Chief Complaint: Cardiac Assessment ED Provider: Ayad Loo Discharge Problem: Atrial fibrillation with rapid ventricular response, Atrial fibrillation, new onset Patient Disposition: Being Evaluated by Hospitalist Forms Stand Alone Forms: [facility] Prescriptions Prescriptions: No Action desmopressin 0.1 mg tablet 0.05 mg PO .COMPLEX Qty: 135 1RF Rx Instructions: 0.05mg qam, 0.1mg qpm duloxetine 20 mg capsule,delayed release(DR/EC) 20 mg PO DAILY Qty: 30 3RF mesalamine [Lialda] 1.2 gram tablet,delayed release (DR/EC) 2.4 gm PO DAILY omeprazole 20 mg capsule,delayed release(DR/EC) 20 mg PO DAILY triamcinolone acetonide 0.1 % cream 1 applic TOPICAL BID PRN (Reason: Skin Irritation) ketoconazole 2 % Cream 1 applic TOPICAL BID PRN (Reason: RASH UNDER BREAST NEEDED) cholecalciferol (vitamin D3) [Vitamin D3] 25 mcg (1,000 unit) Capsule 25 mcg PO DAILY mesalamine 4 gram/60 mL enema 4 g ID HS PRN (Reason: ..) levothyroxine 50 mcg tablet 50 mcg PO .HOLD aspirin [Aspir-Low] 81 mg Tablet,Delayed Release (Dr/Ec) 81 mg PO DAILY Referrals Referrals: Kevin Jacobsen DO [Primary Care Provider] -
--- NOTE | 2023-01-15 17:25 | XRay Report ---
XR chest 1V portable CLINICAL HISTORY: Dysrhythmia TECHNIQUE: Single frontal radiograph of the chest was obtained. Comparison: None available at the time of this dictation. FINDINGS: No lines and tubes are seen. The cardiomediastinal silhouette is normal. The lungs are clear. No evid ence of pleural effusion or pneumothorax. IMPRESSION: No acute chest disease. ACT 112: Negative or not required by law. Electronically signed by: Parviz Mitchell M.D. 01/15/2023 5:23 PM
[2023-01-15 17:37] LABS: Basophils # (auto) 0.01 K/uL (0-0.2); Basophils % (auto) 0.2 %; Hematocrit (blood only) 39.6 % (37.0-47.0); Hemoglobin 13.6 g/dl (12.0-16.0); Immature Granulocytes # (auto) 0.01 K/uL (0.01-0.20); Immature Granulocytes % (auto) 0.2 %; Lymphocytes # (auto) 1.85 K/uL (1.2-3.4); Lymphocytes % (auto) 38.3 %; Mean Corpuscular Hemoglobin 28.6 pg (25.0-34.0); Mean Corpuscular Hgb Conc 34.3 g/dL (32.0-36.0); Mean Corpuscular Volume 83.2 fL (80.0-100.0); Mean Platelet Volume 9.6 fL (9.4-12.4); Monocytes # (auto) 0.84 K/uL (0.11-0.59); Monocytes % (auto) 17.4 %; Neutrophils # (auto) 2.12 K/uL (1.40-6.50); Neutrophils % (auto) 43.9 %; Platelet Count 209 K/uL (130-400); RDW Coefficient of Variation 12.5 % (11.5-14.5); RDW Standard Deviation 38.4 fL (36.4-46.3); Red Blood Count 4.76 M/uL (4.20-5.40); White Blood Count 4.83 K/ul (4.8-10.8)
[2023-01-15 17:56] LABS: Albumin Globulin Ratio 1.4 (0.9-2); Bilirubin,Total 0.5 mg/dl (0.2-1.0); Calcium 9.2 mg/dl (8.6-10.3); Creatinine Clr Calc Pharmacy 69.8 ml/min; Est GFR (African American) 87.3 ml/min; Est GFR (Non-African American) 75.3 ml/min; Globulin 2.8 gm/dl (2.5-4.0); Magnesium 2.1 mg/dl (1.7-2.4); Potassium 3.7 mmol/L (3.5-5.1); Total Protein 6.8 gm/dl (6.0-8.3)
[2023-01-15 18:02] LABS: Troponin I High Sensitivity 9.4 pg/ml (0-14)
[2023-01-15 18:07] LABS: Partial Thromboplastin Ratio 0.9; Partial Thromboplastin Time 25.3 Seconds (21.0-31.0); Prothrombin Time 11.1 Seconds (9.0-12.0)
[2023-01-15 18:10] LABS: Thyroid Stimulating Hormone < 0.010 uIu/ml (0.300-4.500)
[2023-01-15 18:51] LABS: T4 Free Thyroxine 1.28 ng/dl (0.61-1.60)
--- NOTE | 2023-01-15 20:02 | History & Physical Report ---
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 Atrial fibrillation -Atrial fibrillation with RVR on EKG. TSH <0.010 (free T4-1.28, free T3-3.81). [id number] score = 5 (age, gender, hypertension history, CVA history). -Received 1 dose of p.o. metoprolol succinate 12.5 mg in the ED. -Unclear how long she may have had AF though this appears to be patient's first episode, possibly 2/2 levothyroxine dose, given severely low TSH. Patient had been complaining of fatigue recently. However, she reports that this preceded initiation of levothyroxine. -Pt. follows with Dr. Weller of [place] [facility] for central hypothyroidism, ACTH deficiency, isolated gonadotropin deficiency, diabetes insipidus, and lymphocytic hypophysitis. -She does have a history of abnormal stress test while she was with [facility]. However, unable to obtain those records for review. * Admit to PCU. * Metoprolol succinate 12.5 mg twice daily for rate control * Eliquis 5 mg twice daily for anticoagulation * Transthoracic echocardiogram in the a.m. * Stopped levothyroxine. Plan to hold for 2-3 days before restarting at lower dose. Recommend conferring with Dr. Weller before discharge. Central hypothyroidism -Chronic. Follows with Dr. Weller of [place] [facility], as above. Managed on levothyroxine 88 mcg, as of 12/04/2022. Subsequent note on 01/07/2023 shows dose was reduced to 50 mcg. -TSH on admission <0.010. Free T4 1.28, free T3 3.81. This would indicate subclinical hyperthyroidism. * Stop levothyroxine x2 to 3 days. Resume at either 50 mcg or 44 mcg. * F/u with PCP outpatient; repeat TSH (T4/T3 as needed) x6-8 weeks. GERD -Chronic. Managed on omeprazole 20 mg daily. * Pantoprazole 40 mg p.o. daily Ulcerative colitis -Chronic. Well-controlled on mesalamine 2.[address] g daily[address] Follow[address] with Dr. Jatin major * Continue home mesalamine. Central diabetes insipidus -Chronic. Managed on desmopressin 0.05 mg qAM, 0.1 mg qPM. * Continue desmopressin on admission. ACTH deficiency -Chronic. Well-controlled without medication since 2021. Reviewed outpatient endocrinology notes, would suggest deficiency subtle at best. * No active management, however continue to monitor daily electrolyte labs, vitals. 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 Patient has been having fatigue/STEWART and generalized weakness. She denied chest pain, pedal edema, or recent illness. In the ED, vitals were notable for tachycardia to the 110s and irregular rhythm consistent with atrial fibrillation. Labs were mostly within normal limits, but was notable for a TSH of <0.010free T4 was within normal limits (1.28). She received half liter bolus of normal saline and 1 g of magnesium sulfate. Hospitalist service was then consulted for admission. Allergies Allergy/AdvReac Type Severity Reaction Status Date / Time hydrocodone Allergy Severe RASH Verified 01/15/23 15:13 Penicillins Allergy Severe CAN'T Verified 01/15/23 15:13 REMEMBER ciprofloxacin AdvReac Intermediate nausea/vomi Verified 01/15/23 15:13 ting meloxicam [From Mobic] AdvReac Intermediate DIARRHEA/NA Verified 01/15/23 15:13 USEA/VOMITI NG Sulfa (Sulfonamide AdvReac Intermediate CAUSED Verified 01/15/23 15:13 Antibiotics) ELEVATION OF WBC'S PER PT PER DR BACA Home Medications Medication Instructions Recorded Confirmed Type mesalamine 1.2 gram tablet,delayed 2.4 gm PO DAILY 03/01/19 01/15/23 History release (Lialda) cholecalciferol (vitamin D3) 25 25 mcg PO DAILY 07/01/22 01/15/23 History mcg (1,000 unit) capsule (Vitamin D3) ketoconazole 2 % topical cream 1 applic topical BID PRN RASH 07/01/22 01/15/23 History UNDER BREAST NEEDED triamcinolone acetonide 0.1 % 1 applic topical BID PRN Skin 07/01/22 01/15/23 History topical cream Irritation desmopressin 0.1 mg tablet 0.05 mg PO .COMPLEX #135 tabs 11/29/22 01/15/23 Rx duloxetine 20 mg capsule,delayed 20 mg PO DAILY #30 caps 12/09/22 01/15/23 Rx release omeprazole 20 mg capsule,delayed 20 mg PO DAILY 01/07/23 01/15/23 History release aspirin 81 mg tablet,delayed 81 mg PO DAILY 01/15/23 01/15/23 History release levothyroxine 50 mcg tablet 50 mcg PO .HOLD 01/15/23 01/15/23 History mesalamine 4 gram/60 mL enema 4 g DE HS PRN .. 01/15/23 01/15/23 History apixaban 5 mg tablet (Eliquis) 5 mg PO BID #60 tabs 01/16/23 Rx metoprolol succinate 25 mg 12.5 mg PO DAILY #30 tabs 01/16/23 Rx tablet,extended release 24 hr Past Med/Surg History Medical History Breast reconstruction deformity IMPLANTS REMOVED DUE TO INFECTION Chronic back pain PT FEELS THAT SHE HAS A MULTITUDE OF PROBLEMS IN THIS AREA, BUT DOES NOT SPECIFY SPECIFICS GERD (gastroesophageal reflux disease) History of breast cancer HER2-positive STAGE 3 AT TIME OF DIAGNOSIS. PT HAD BILATERAL MASTECTOMY 01/20/12 WITH LYMPH NODE INVOLVEMENT OF RIGHT AXILLA. LEFT AXILLA NEGATIVE FOR LYMPH NODE INVOLVEMENT TREATED WITH CHEMO AND RADIATION THERAPY. History of CVA (cerebrovascular accident) 2004 HLD (hyperlipidemia) Osteoarthritis Overweight (BMI 25.0-29.9) UTI (urinary tract infection) Surgical History H/O bilateral mastectomy History of bowel resection FOLLOWING A COLONOSCOPY History of lymph node dissection of both axillae Family History Other COPD (chronic obstructive pulmonary disease) Cancer Social History Smoking Status: Never smoker Do You Dip or Chew Tobacco: No; Hx Alcohol Use: No Hx Substance Use: No Preferred Language: Gibraltarian Communication Ability: Effective Operator Assistant I Cementing Required: No Beliefs That Will Affect Care: None Current Living Situation: Spouse Feels Safe at Home: Yes Assistive Devices: Walker Review of Systems Review of Systems: All systems reviewed & are unremarkable except as noted in HPI & below Physical Exam Physical Exam: General: No acute distress HEENT: PERRLA. Normal conjunctiva, anicteric sclera. Oropharynx normal. Respiratory: Normal respiratory effort, CTABL. Postmastectomy scars noted on visual exam. Cardiovascular: Tachycardic rate, irregularly irregular rhythm. No JVD or pedal edema noted. Neuro: Alert and oriented x3. Results & Data Results & Data Vital Signs (Past 12 Hours) Vital Signs Temp Pulse Resp BP Pulse Ox 01/15/23 18:00 88 15 138/79 96 01/15/23 17:30 110 H 19 94 01/15/23 17:02 87 14 92 01/15/23 16:33 36.5 C 110 H 14 131/94 94 01/15/23 17:14 99 H Laboratory Results 01/15/23 01/15/23 01/15/23 Range/Units 17:07 17:07 17:07 WBC (4.8-10.8) K/ul RBC (4.20-5.40) M/uL Hgb (12.0-16.0) g/dl Hct (37.0-47.0) % MCV (80.0-100.0) fL MCH (25.0-34.0) pg MCHC (32.0-36.0) g/dL RDW Std Deviation (36.4-46.3) fL RDW Coeff of Moose (11.5-14.5) % Plt Count (130-400) K/uL MPV (9.4-12.4) fL Immature Gran % (Auto) % Neut % (Auto) % Lymph % (Auto) % [place] % (Auto) % Eos % (Auto) % Baso % (Auto) % Neut # (Auto) (1.40-6.50) K/uL Lymph # (Auto) (1.2-3.4) K/uL [place] # (Auto) (0.11-0.59) K/uL Eos # (Auto) (0-0.50) K/uL Baso # (Auto) (0-0.2) K/uL Immature Gran # (Auto) (0.01-0.20) K/uL PT (9.0-12.0) Seconds INR (0.9-1.1) APTT (21.0-31.0) Seconds PTT Ratio Sodium 135 L (136-145) mmol/L Potassium 3.7 (3.5-5.1) mmol/L Chloride 103 (98-107) mmol/L Carbon Dioxide 24 (21-32) mmol/L Anion Gap 8 (3-11) BUN 15 (6-23) mg/dl Creatinine 0.79 (0.6-1.2) mg/dl Est Cr Clr Drug Dosing 69.8 ml/min Est GFR ( Amer) 87.3 ml/min Est GFR (Non-Af Amer) 75.3 ml/min BUN/Creatinine Ratio 19.0 (10-20) Glucose 91 (70-99(Fasting)) mg/dl Calcium 9.2 (8.6-10.3) mg/dl Magnesium 2.1 (1.7-2.4) mg/dl Total Bilirubin 0.5 (0.2-1.0) mg/dl AST 23 (13-39) U/L ALT 10 (7-52) U/L Alkaline Phosphatase 102 (34-104) U/L Troponin I High Sens 9.4 (0-14) pg/ml Total Protein 6.8 (6.0-8.3) gm/dl Albumin 4.0 (3.4-5.0) gm/dl Globulin 2.8 (2.5-4.0) gm/dl Albumin/Globulin Ratio 1.4 (0.9-2) TSH < 0.010 L (0.300-4.500) uIu/ml Free T4 1.28 (0.61-1.60) ng/dl Free T3 3.81 (2.3-4.2) pg/ml 01/15/23 01/15/23 Range/Units 17:07 17:07 WBC 4.83 (4.8-10.8) K/ul RBC 4.76 (4.20-5.40) M/uL Hgb 13.6 (12.0-16.0) g/dl Hct 39.6 (37.0-47.0) % MCV 83.2 (80.0-100.0) fL MCH 28.6 (25.0-34.0) pg MCHC 34.3 (32.0-36.0) g/dL RDW Std Deviation 38.4 (36.4-46.3) fL RDW Coeff of Moose 12.5 (11.5-14.5) % Plt Count 209 (130-400) K/uL MPV 9.6 (9.4-12.4) fL Immature Gran % (Auto) 0.2 % Neut % (Auto) 43.9 % Lymph % (Auto) 38.3 % [place] % (Auto) 17.4 % Eos % (Auto) 0.0 % Baso % (Auto) 0.2 % Neut # (Auto) 2.12 (1.40-6.50) K/uL Lymph # (Auto) 1.85 (1.2-3.4) K/uL [place] # (Auto) 0.84 H (0.11-0.59) K/uL Eos # (Auto) 0.00 (0-0.50) K/uL Baso # (Auto) 0.01 (0-0.2) K/uL Immature Gran # (Auto) 0.01 (0.01-0.20) K/uL PT 11.1 (9.0-12.0) Seconds INR 1.0 (0.9-1.1) APTT 25.3 (21.0-31.0) Seconds PTT Ratio 0.9 Sodium (136-145) mmol/L Potassium (3.5-5.1) mmol/L Chloride (98-107) mmol/L Carbon Dioxide (21-32) mmol/L Anion Gap (3-11) BUN (6-23) mg/dl Creatinine (0.6-1.2) mg/dl Est Cr Clr Drug Dosing ml/min Est GFR ( Amer) ml/min Est GFR (Non-Af Amer) ml/min BUN/Creatinine Ratio (10-20) Glucose (70-99(Fasting)) mg/dl Calcium (8.6-10.3) mg/dl Magnesium (1.7-2.4) mg/dl Total Bilirubin (0.2-1.0) mg/dl AST (13-39) U/L ALT (7-52) U/L Alkaline Phosphatase (34-104) U/L Troponin I High Sens (0-14) pg/ml Total Protein (6.0-8.3) gm/dl Albumin (3.4-5.0) gm/dl Globulin (2.5-4.0) gm/dl Albumin/Globulin Ratio (0.9-2) TSH (0.300-4.500) uIu/ml Free T4 (0.61-1.60) ng/dl Free T3 (2.3-4.2) pg/ml Supervising Physician Co-Signing Physician Notes Attending addendum: I have physically seen this patient, have supervised the medical residents activities, and agree with the H&P unless as otherwise noted. Assessment and Plan: Atrial fibrillation with RVR, new onset- The patient will be admitted to telemetry for serial cardiac enzymes, serial EKG's, cardiac rhythm monitoring and a 2-D echocardiogram with Dopplers. TSH less than 0.010, with free T41.28 And free T33.81 Status post metoprolol succinate 12.5 mg in the ED Unclear time of origin Placing on Eliquis 5 mg p.o. twice daily for now Temporarily hold levothyroxine Consult cardiology Resident Activity Tracking Resident Involvement: Resident Care Provided Care Provided: Adult Hospital Medicine
[2023-01-15] MEDS ORDERED: METOPROLOL SUCC 25MG EXT REL TAB PO STA (20:51)
[2023-01-15] MEDS ORDERED: MELATONIN 3 MG TAB PO PRN (23:09)
[2023-01-15] MEDS ORDERED: DESMOPRESSIN ACETATE 0.1 MG TAB PO SCH (23:40)
[2023-01-15] MEDS: APIXABAN 5 MG TABLET PO SCH (23:48)
[2023-01-16 06:20] LABS: Hematocrit (blood only) 40.1 % (37.0-47.0); Hemoglobin 13.6 g/dl (12.0-16.0); Mean Corpuscular Hemoglobin 28.2 pg (25.0-34.0); Mean Corpuscular Hgb Conc 33.9 g/dL (32.0-36.0); Mean Corpuscular Volume 83.2 fL (80.0-100.0); Mean Platelet Volume 9.9 fL (9.4-12.4); Platelet Count 204 K/uL (130-400); RDW Coefficient of Variation 12.9 % (11.5-14.5); RDW Standard Deviation 38.9 fL (36.4-46.3); Red Blood Count 4.82 M/uL (4.20-5.40)
[2023-01-16 07:27] LABS: BUN Creatinine Ratio 17.3 (10-20); Calcium 9.1 mg/dl (8.6-10.3); Creatinine Clr Calc Pharmacy 66.2 ml/min; Est GFR (African American) 84.7 ml/min; Est GFR (Non-African American) 73.1 ml/min
[2023-01-16] MEDS: APIXABAN 5 MG TABLET PO SCH (08:15)
[2023-01-16] MEDS ORDERED: DESMOPRESSIN ACETATE 0.1 MG TAB PO SCH ×2 (09:00→21:00)
[2023-01-16] MEDS ORDERED: DULoxetine HCL 20 MG CAP PO SCH (09:00)
[2023-01-16] MEDS ORDERED: ASPIRIN 81 MG CHEW PO SCH (09:00)
[2023-01-16] MEDS ORDERED: CHOLECALCIFEROL 1,000 UNITS 25 MCG TAB PO SCH ×2 (09:00)
--- NOTE | 2023-01-16 12:19 | XCELERA ---
[id number] [id number]
--- NOTE | 2023-01-16 15:39 | Electrocardiogram Report ---
Test Reason : Blood Pressure : / mmHG Vent. Rate : 104 BPM Atrial Rate : 000 BPM P-R Int : 000 ms QRS Dur : 076 ms QT Int : 358 ms P-R-T Axes : 000 018 060 degrees QTc Int : 470 ms Atrial fibrillation with rapid ventricular response Abnormal ECG When compared with ECG of 01-JUL-2022 14:31, Atrial fibrillation has replaced Sinus rhythm Vent. rate has increased BY 39 BPM Nonspecific T wave abnormality, improved in Anterolateral leads QT has lengthened Confirmed by Ayad Lozano ([id number]) on 01/16/2023 3:39:11 PM Referred By: Kevin Jacobsen Confirmed By:Ayad Lozano
--- NOTE | 2023-01-16 15:58 | Electrocardiogram Report ---
Test Reason : Blood Pressure : / mmHG Vent. Rate : 083 BPM Atrial Rate : 071 BPM P-R Int : 000 ms QRS Dur : 076 ms QT Int : 402 ms P-R-T Axes : 000 011 043 degrees QTc Int : 472 ms Atrial fibrillation Abnormal ECG When compared with ECG of 15-JAN-2023 16:50, (unconfirmed) No significant change was found Confirmed by Ayad Lozano ([id number]) on 01/16/2023 3:58:17 PM Referred By: Kevin Jacobsen Confirmed By:Ayad Lozano
--- NOTE | 2023-01-16 16:22 | Communication Note ---
Date of Service: January 16, 2023 By CMS guidelines, a determination that the admission or continued stay is not medically necessary has been made by a member of the Utilization Review com hector and a physician for this hospital stay. Therefore, a Code 44 will be completed and the inpatient admission will be changed to outpatient. DO Sarmad
--- NOTE | 2023-01-16 16:36 | Communication Note ---
Date of Service: January 16, 2023 By CMS guidelines, a determination that the admission or continued stay is not medically necessary has been made by a member of the UR committee and a phy sician for this hospital stay, therefore a Code 44 will be completed and the Inpatient admission will be changed to outpatient. Gary Prasad MD
--- NOTE | 2023-01-16 16:38 | Discharge Summary ---
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 Patient has been having fatigue/STEWART and generalized weakness. She denied chest pain, pedal edema, or recent illness. In the ED, vitals were notable for tachycardia to the 110s and irregular rhythm consistent with atrial fibrillation. Labs were mostly within normal limits, but was notable for a TSH of <0.010free T4 was within normal limits (1.28). She received half liter bolus of normal saline and 1 g of magnesium sulfate. Hospitalist service was then consulted for admission. Discharge Data Allergies Allergy/AdvReac Type Severity Reaction Status Date / Time hydrocodone Allergy Severe RASH Verified 01/15/23 15:13 Penicillins Allergy Severe CAN'T Verified 01/15/23 15:13 REMEMBER ciprofloxacin AdvReac Intermediate nausea/vomi Verified 01/15/23 15:13 ting meloxicam [From Mobic] AdvReac Intermediate DIARRHEA/NA Verified 01/15/23 15:13 USEA/VOMITI NG Sulfa (Sulfonamide AdvReac Intermediate CAUSED Verified 01/15/23 15:13 Antibiotics) ELEVATION OF WBC'S PER PT PER DR BACA Consultations 01/15/23 18:48 ED Decision to Admit Stat Discharge Plan Discharge Items Patient Disposition: Home - Self-Care Reason For Visit: Atrial fibrillation Discharge Diagnosis: 1. new-onset atrial fibrillation 2. hypothyroidism with recent dose adjustment 3. fatigue with appetite changes - follow-up needed with primary care & oncology Activity: As commented below Activity Comment: light activities only until you see your family doctor (walks, etc are ok) Exercise/Sports: Wait until after follow-up appointment Non-emergency contact: Primary Care Provider and Escrow Officer Call non-emergency contact if: you have any medication questions Follow-up/Referrals: Norma Reed PA-C [Physician Product Development Intern] - 01/31/23 9:00 am (Cardiology Appointment ) Kevin Jacobsen DO [Primary Care Provider] - 01/22/23 2:00 pm Diet: Heart Healthy Addtl Attending Provider Instructions: Ms Rubin, You were hospitalized for newly discovered atrial fibrillation ("afib" for short). Afib is an abnormal heart rhythm that originates from the top portion of the heart. There are various causes of afib including heart valve problems, heart enlargement, overactive thyroid gland, electrolyte abnormalities, etc. In your case it is possible that the recent overactive thyroid gland due to too much thyroid medication could have contributed to this. Your afib has been controlled very well with a low dose of metoprolol medication. You have been on this medication in the past. The metoprolol controls the afib by lowering your heart rate into a normal range. Your echocardiogram showed normal heart function, normal heart valves, and just modest enlargement of the top portion of the heart (called the atria). This is a common finding on echocardiograms. There is nothing specific to do about the modest enlargement of the atria. It is very possible that your afib spontaneously converts back to normal rhythm at some point in the future as your new thyroid dose takes effect. Recommendations - 1. Eliquis blood thinner - 5mg twice daily every day. This thins your blood to prevent blood clot formation in the heart. By thinning the blood with Eliquis you will reduce your risk of stroke from afib. 2. Metoprolol succinate 12.5mg once daily. Start this TONIGHT at bedtime. This medication again will control your pulse/heart rate. 3. Synthroid (levothyroxine) 50mcg each morning. Start this on 01/19/23. 4. If possible please monitor your pulse/heart rate at home. If you are seeing heart rates less than 100 beats per minute your a.fib is under good control. If you are noting pulse rates more than 100 at rest you may need a dose adjustment in the metoprolol. Of note - your heart rate rises with walking and activity. This is normal. If you stay in the 120s or less with walking those rates are acceptable as well. 5. See your family doctor within 1 week for a blood pressure and pulse check. They can also do an EKG to see if you are still in afib. 6. See [facility] in 2-3 weeks for the afib. 7. Keep your scheduled appt with Dr Weller. 8. For now stay on your baby aspirin. It is possible that you may not need it in the future, however. Return to [facility] if - * you have concerns about your pulse/heart rate * you have bleeding from any location as listed below * you have shortness of breath * you have chest pains * you have dizziness or lightheadedness * any other concerns It was our pleasure to care for you! -Dr Shanice Colon Credit Coordinator Provider Instructions: Blood thinner instructions: Your afib condition is typically treated with an anticoagulant (blood thinner). Anticoagulants will thin your blood to help prevent clots. Your blood thinner is Eliquis. * You should take your medication exactly as directed. * Never skip a dose. * Never take a double dose. If you miss a dose, take it as soon as you remember. Call your Primary Care doctor if you experience any of the following: * Chest Pain * Sudden Shortness of Breath * Rapid or pounding heart beat * Fainting * Dizziness * Cough with blood or bloody sputum * Sweating more than normal * Bruises * Heavy or uncontrolled bleeding * Blood in your urine, stool or vomit * Black or tarry stools * Heavy nose bleeding Pending Studies at Discharge: No Stand-Alone Forms: [facility], Smoking Cessation Medications and DC Order Prescriptions: New Eliquis 5 mg Tablet 5 mg PO BID Qty: 60 5RF metoprolol succinate 25 mg tablet extended release 24 hr 12.5 mg PO DAILY Qty: 30 5RF Continued desmopressin 0.1 mg tablet 0.05 mg PO .COMPLEX Qty: 135 1RF Rx Instructions: 0.05mg qam, 0.1mg qpm duloxetine 20 mg capsule,delayed release(DR/EC) 20 mg PO DAILY Qty: 30 3RF mesalamine [Lialda] 1.2 gram tablet,delayed release (DR/EC) 2.4 gm PO DAILY omeprazole 20 mg capsule,delayed release(DR/EC) 20 mg PO DAILY triamcinolone acetonide 0.1 % cream 1 applic TOPICAL BID PRN (Reason: Skin Irritation) ketoconazole 2 % Cream 1 applic TOPICAL BID PRN (Reason: RASH UNDER BREAST NEEDED) cholecalciferol (vitamin D3) [Vitamin D3] 25 mcg (1,000 unit) Capsule 25 mcg PO DAILY mesalamine 4 gram/60 mL enema 4 g CA HS PRN (Reason: ..) aspirin [Aspir-Low] 81 mg Tablet,Delayed Release (Dr/Ec) 81 mg PO DAILY Held levothyroxine 50 mcg tablet 50 mcg PO .HOLD Hold Instructions: Resume on 01/19/23. Discharge Orders: Discharge Order (Routine); Ordered 01/16/23 Ordered By: Gary Ta/Other Patient Handouts: AFib Preventing Stroke, ED Atrial Fibrillation Admission Data Admit Date/Time: 01/15/23 19:26 Attending Provider: Gary Prasad Admit Provider: Caroline Negron Primary Care Provider: Kevin Jacobsen Other Providers: Matt Pérez Coding Diagnoses
--- NOTE | 2023-01-17 05:23 | Billing Data ---
Date of Service January 17, 2023 Coding Level of Care Code 58909 INT INP/OBS CARE
== END 2023-01-16 17:35 | disposition home or self-care (01) | DRG 309 ==
LOC: ED 16:41 → 4W 19:26 → SUATTDRO 19:26 → INTOOBSV 19:26 → 4W 22:33